=== PATIENT | male | born 1945 | race Caucasian/White ===

== ENCOUNTER → 2018-10-26 08:05 | Outpatient (CLI) | payer MEDICARE, BC, SELFPAY ==
[2018-10-26 10:32] LABS: Anion Gap 6 (5-15); BUN 21 mg/dL (7-18); BUN/Creat Ratio 18.4 RATIO (10-20); Calcium,Total 8.9 mg/dL (8.5-10.1); Chloride 106 mmol/L (98-107); Cholesterol 132 mg/dL (200); Creatinine, Serum 1.14 mg/dL (0.70-1.30); EST Glomerular Filtration Rate 67 mL/min (>60); Est Glom Filt Rate - Afr Amer 81 mL/min (>60); Glucose 92 mg/dL (74-106); High Density Lipoprotein 61 mg/dL; PSA,Total- Diagnostic 2.02 ng/mL (0.0-4.0); Potassium 3.8 mmol/L (3.5-5.1); Sodium Level 144 mmol/L (136-145); Triglycerides 72 mg/dL; Very Low Density Lipoprotein 14 mg/dL (5-40)
== END ==
PROVIDERS: Family Provider Family Medicine; PCP Family Medicine; Referring Provider Family Medicine; Visit Provider Family Medicine
DX: E78.5 Hyperlipidemia, unspecified (principal); N40.0 Benign prostatic hyperplasia without lower urinary tract symptoms
CPT/HCPCS: 36415; 80048; 80061; 84153

== ENCOUNTER → 2019-04-27 08:48 | Outpatient (CLI) | payer MEDICARE, BC, SELFPAY ==
[2019-04-27 10:29] LABS: ALB/GLOB Ratio 1.2 RATIO (0.9-2.4); AST(SGOT) 22 U/L (15-37); Alanine Aminotransfer ALT/SGPT 25 U/L (16-61); Albumin, Serum 3.8 g/dL (3.2-5.0); Alkaline Phosphatase 62 U/L (45-117); Anion Gap 5 (5-15); BUN 24 mg/dL (7-18); Calcium,Total 8.7 mg/dL (8.5-10.1); Chloride 107 mmol/L (98-107); Cholesterol 134 mg/dL (200); Creatinine, Serum 1.09 mg/dL (0.70-1.30); EST Glomerular Filtration Rate 70 mL/min (>60); Est Glom Filt Rate - Afr Amer 85 mL/min (>60); Globulin 3.3 g/dL (2.2-4.2); Glucose 108 mg/dL (74-106); High Density Lipoprotein 69 mg/dL; Potassium 4.2 mmol/L (3.5-5.1); Protein, Total 7.1 g/dL (6.4-8.2); Sodium Level 140 mmol/L (136-145); Triglycerides 57 mg/dL; Very Low Density Lipoprotein 11 mg/dL (5-40)
== END ==
PROVIDERS: Family Provider Family Medicine; PCP Family Medicine; Referring Provider Family Medicine; Visit Provider Family Medicine
DX: E78.5 Hyperlipidemia, unspecified (principal)
CPT/HCPCS: 36415; 80053; 80061

== ENCOUNTER → 2019-10-26 09:38 | Outpatient (CLI) | payer MEDICARE, BC, SELFPAY ==
[2019-10-26 13:58] LABS: ALB/GLOB Ratio 1.1 RATIO (0.9-2.4); AST(SGOT) 29 U/L (15-37); Alanine Aminotransfer ALT/SGPT 25 U/L (16-61); Albumin, Serum 3.8 g/dL (3.2-5.0); Alkaline Phosphatase 70 U/L (45-117); Anion Gap 7 (5-15); BUN 19 mg/dL (7-18); BUN/Creat Ratio 17.1 RATIO (10-20); Chloride 107 mmol/L (98-107); Cholesterol 125 mg/dL (200); Creatinine, Serum 1.11 mg/dL (0.70-1.30); EST Glomerular Filtration Rate 69 mL/min (>60); Est Glom Filt Rate - Afr Amer 83 mL/min (>60); Globulin 3.5 g/dL (2.2-4.2); Glucose 108 mg/dL (74-106); High Density Lipoprotein 74 mg/dL; Potassium 4.1 mmol/L (3.5-5.1); Protein, Total 7.3 g/dL (6.4-8.2); Sodium Level 140 mmol/L (136-145); Triglycerides 46 mg/dL; Very Low Density Lipoprotein 9 mg/dL (5-40)
== END ==
PROVIDERS: PCP Family Medicine; Visit Provider Family Medicine
DX: E78.5 Hyperlipidemia, unspecified (principal); F32.9 Major depressive disorder, single episode, unspecified; F41.9 Anxiety disorder, unspecified
CPT/HCPCS: 36415; 80053; 80061

== ENCOUNTER → 2020-04-29 10:12 | Outpatient (CLI) | payer MEDICARE, BC, SELFPAY ==
[2020-04-29 12:57] LABS: Anion Gap 3 (5-15); BUN 20 mg/dL (7-18); BUN/Creat Ratio 18.7 RATIO (10-20); Calcium,Total 8.8 mg/dL (8.5-10.1); Chloride 105 mmol/L (98-107); Cholesterol 121 mg/dL (200); Creatinine, Serum 1.07 mg/dL (0.70-1.30); EST Glomerular Filtration Rate 71 mL/min (>60); Est Glom Filt Rate - Afr Amer 87 mL/min (>60); Glucose 101 mg/dL (74-106); High Density Lipoprotein 71 mg/dL; Sodium Level 139 mmol/L (136-145); Triglycerides 58 mg/dL; Very Low Density Lipoprotein 12 mg/dL (5-40)
== END ==
PROVIDERS: PCP Family Medicine; Visit Provider Family Medicine
DX: E78.5 Hyperlipidemia, unspecified (principal); E87.6 Hypokalemia; E55.9 Vitamin D deficiency, unspecified
CPT/HCPCS: 36415; 80048; 80061; 82306

== ENCOUNTER → 2020-09-04 09:54 | Outpatient (CLI) | payer MEDICARE, BC, SELFPAY ==
[2020-09-04 12:22] LABS: Hematocrit 47.1 % (40-54); Hemoglobin 16.5 g/dL (13.0-16.5); Mean Corpuscular Hgb 34.7 pg (27.0-32.0); Mean Corpuscular Volume 98.9 fL (80-94); Mean Platelet Vol. 10.2 fl (6.2-12.0); Platelet Count 142 K/mm3 (150-450); RBC Distribution Width CV 12.6 % (11.6-14.6); RBC Distribution Width SD 45.8 fl (35.1-43.9); Red Blood Count 4.76 M/mm3 (4.6-6.2); White Blood Count 6.2 K/mm3 (4.4-11.0)
[2020-09-04 12:45] LABS: AST(SGOT) 23 U/L (15-37); Alanine Aminotransfer ALT/SGPT 23 U/L (16-61); Albumin, Serum 3.7 g/dL (3.2-5.0); Alkaline Phosphatase 76 U/L (45-117); Anion Gap 5 (5-15); BUN 18 mg/dL (7-18); BUN/Creat Ratio 15.8 RATIO (10-20); CRP < 2.90 mg/L (0.0-3.0); Calcium,Total 9.3 mg/dL (8.5-10.1); Chloride 105 mmol/L (98-107); Creatinine, Serum 1.14 mg/dL (0.70-1.30); EST Glomerular Filtration Rate 66 mL/min (>60); Est Glom Filt Rate - Afr Amer 80 mL/min (>60); Globulin 3.6 g/dL (2.2-4.2); Glucose 94 mg/dL (74-106); Potassium 4.5 mmol/L (3.5-5.1); Protein, Total 7.3 g/dL (6.4-8.2); Sodium Level 139 mmol/L (136-145)
== END ==
PROVIDERS: PCP Family Medicine; Referring Provider Internal Medicine Gastroenterology; Visit Provider Internal Medicine Gastroenterology
DX: K51.90 Ulcerative colitis, unspecified, without complications (principal)
CPT/HCPCS: 36415; 80053; 85027; 86140

== ENCOUNTER → 2021-02-21 10:29 | Outpatient (CLI) | payer MEDICARE, BC, SELFPAY ==
[2021-02-21 12:43] LABS: PSA,Total - Annual Screen 2.55 ng/mL (0.00-4.00)
== END ==
PROVIDERS: PCP Family Medicine; Referring Provider Family Medicine; Visit Provider Family Medicine
DX: N40.0 Benign prostatic hyperplasia without lower urinary tract symptoms (principal)
CPT/HCPCS: 36415; 84153; G0103

== ENCOUNTER → 2021-05-13 08:49 | Outpatient (CLI) | payer MEDICARE, BC, SELFPAY ==
[2021-05-13 10:25] LABS: ALB/GLOB Ratio 0.9 RATIO (0.9-2.4); AST(SGOT) 25 U/L (15-37); Alanine Aminotransfer ALT/SGPT 22 U/L (16-61); Albumin, Serum 3.4 g/dL (3.2-5.0); Alkaline Phosphatase 70 U/L (45-117); Anion Gap 5 (5-15); BUN 20 mg/dL (7-18); BUN/Creat Ratio 18.3 RATIO (10-20); Calcium,Total 9.1 mg/dL (8.5-10.1); Chloride 104 mmol/L (98-107); Cholesterol 135 mg/dL (200); Creatinine, Serum 1.09 mg/dL (0.70-1.30); EST Glomerular Filtration Rate 70 mL/min (>60); Est Glom Filt Rate - Afr Amer 84 mL/min (>60); Globulin 3.9 g/dL (2.2-4.2); Glucose 98 mg/dL (74-106); High Density Lipoprotein 70 mg/dL; Potassium 3.9 mmol/L (3.5-5.1); Protein, Total 7.3 g/dL (6.4-8.2); Sodium Level 139 mmol/L (136-145); Triglycerides 66 mg/dL; Very Low Density Lipoprotein 13 mg/dL (5-40)
== END ==
PROVIDERS: PCP Family Medicine; Visit Provider Family Medicine
DX: E78.5 Hyperlipidemia, unspecified (principal)
CPT/HCPCS: 36415; 80053; 80061

== ENCOUNTER → 2021-10-30 | Outpatient (CLI) | payer MEDICARE, SELFPAY ==
[2021-10-30 12:43] LABS: ALB/GLOB Ratio 1.1 RATIO (0.9-2.4); AST(SGOT) 20 U/L (15-37); Alanine Aminotransfer ALT/SGPT 22 U/L (16-61); Albumin, Serum 3.7 g/dL (3.2-5.0); Alkaline Phosphatase 53 U/L (45-117); Anion Gap 4 (5-15); BUN 19 mg/dL (7-18); BUN/Creat Ratio 17.8 RATIO (10-20); Calcium,Total 8.7 mg/dL (8.5-10.1); Chloride 106 mmol/L (98-107); Cholesterol 132 mg/dL (200); Creatinine, Serum 1.07 mg/dL (0.70-1.30); EST Glomerular Filtration Rate 71 mL/min (>60); Est Glom Filt Rate - Afr Amer 86 mL/min (>60); Globulin 3.4 g/dL (2.2-4.2); Glucose 103 mg/dL (74-106); High Density Lipoprotein 73 mg/dL; Potassium 4.1 mmol/L (3.5-5.1); Protein, Total 7.1 g/dL (6.4-8.2); Sodium Level 139 mmol/L (136-145); Triglycerides 46 mg/dL; Very Low Density Lipoprotein 9 mg/dL (5-40)
== END | disposition home or self-care (01) ==
LOC: MFPLAB 10:02
PROVIDERS: PCP Family Medicine; Referring Provider Family Medicine; Visit Provider Family Medicine
DX: E78.5 Hyperlipidemia, unspecified (principal)
CPT/HCPCS: 36415; 80053; 80061

== ENCOUNTER 2022-02-12 11:59 | Emergency (ER) | payer MEDICARE, SELFPAY ==
[2022-02-12 12:00] VITALS: BP 102/69; PULSE 58; RESP 14; TEMP 36.2; O2SAT 97; BMI 20.9
--- NOTE | 2022-02-12 12:17 | EDS_ITS ---
HPI History of Present Illness Chief Complaint: Complaint Detail of Chief Complaint: Dysuria and urinary retention that started last night Informant: patient Narrative Narrative: Patient presents the emergency department complaint of not being able to void since last evening. Patient is able to get small amounts out but it is painful. He complains of dry heaves. He complains of some lower abdominal discomfort and pressure. He complains of some mild discomfort in his low back. He denies any fevers. He is not had symptoms like this before. He denies recent travel or surgery. Prior similar symptoms: No PFSH PFSH Medical History (Updated 02/12/22 @ 14:[address] Rolo Rahman, DO) Colitis High cholesterol Lymphoma TIA (transient ischemic attack) Home Medications cephalexin 500 mg capsule 500 mg PO Q6 #40 CAPSULES 02/12/22 [Rx Last Taken Unknown] ondansetron 4 mg disintegrating tablet 4 mg PO Q8H PRN PRN Nausea #10 tabs 02/12/22 [Rx Last Taken Unknown] phenazopyridine 200 mg tablet (Pyridium) 200 mg PO TID #10 tabs 02/12/22 [Rx Last Taken Unknown] Allergy/AdvReac Type Severity Reaction Status Date / Time No Known Allergies Allergy Verified 02/12/22 12:00 Social History Smoking Status: Never smoker ROS ROS ED Review of Systems ROS Unobtainable: other Constitutional Constitutional ED: Reports lethargy; Denies chills, fever(s), sweats or weight loss Eyes Eyes: Denies blurry vision, change in vision or diplopia ENT ENT ED: Denies rhinorrhea or sore throat Cardiovascular Cardiovascular: Denies chest pain, orthopnea or racing heartbeat Respiratory/Chest Respiratory/Chest: Denies cough, dyspnea, dyspnea on exertion, orthopnea or sputum Gastrointestinal Gastrointestinal: Reports abdominal pain; Denies diarrhea, nausea or vomiting Genitourinary Genitourinary ED: Reports dysuria and other Details: Urinary retention ; Denies hematuria or urinary frequency Musculoskeletal Musculoskeletal: Denies arthralgias, back pain, myalgias or neck pain Integumentary Denies abscess, Abrasions or rash Neurologic Neurologic: Denies headache(s) or weakness Psychiatric Psychiatric: Denies anxiety, depression or suicidal thoughts Endocrine Endocrinology: Denies polydipsia, polyphagia or polyuria Hematologic/Lymphatic Hematologic/Lymphatic: Denies easy bleeding, easy bruising or lymphadenopathy Allergic/Immunologic Allergic/Immunologic ED: Denies mouth swelling, tongue swelling or urticaria EXAM Physical Exam Const Vital Signs: 02/12/22 12:00 02/12/22 12:57 Temperature 97.2 F L 99.6 F H Temperature Source Temporal Oral Pulse Rate 58 L Respiratory Rate 14 Blood Pressure 102/69 Blood Pressure Mean 80 Pulse Ox 97 Oxygen Delivery Method Room Air Positive well nourished and well developed General Appearance ED: well developed and NAD HEENT Reports TM's clear and moist mucous membranes normocephalic and atraumatic; Negative for trauma or tenderness Tympanic Membrane ED: Yes TM's clear Eyes PERRL and EOMs intact bilaterally General Eye ED: Negative for pale conjunctiva or scleral icterus Neck no lymphadenopathy, supple and no JVD General: Negative for tenderness Chest Wall inspection of chest normal and palpation of chest normal Chest: Negative for tenderness Resp normal respiratory effort and clear to auscultation bilaterally Effort and Inspection: Negative for respiratory distress or pain with movement Auscultation: Negative for rhonchi, wheezes or diminished lung sounds Cardio regular rate, regular rhythm, S1 normal heart sound, S2 normal heart sound and no murmurs Peripheral Pulses: pulses 2+ throughout GI normal to inspection, nondistended, normoactive bowel sounds, soft to palpation, non-distended and no masses GI Narrative: Mild tenderness over suprapubic region. There is no rebound, rigidity, or peritoneal signs. Back/Spine no CVA tenderness and no thoracic nor lumbar tenderness Extremity normal to inspection General Extremety ED: Negative for edema General Extremity: Negative for edema Neuro oriented x3, CN's II-XII intact bilaterally, no sensory deficits noted and gait normal Sensorium / Orientation: awake, alert, oriented to person, oriented to place and oriented to time Motor Exam: strength 5/5 throughout and strength abnormal Psych mental status grossly normal Skin no rashes or lesions noted and no wounds MDM MDM Lab Data Attestation: I reviewed the patient's lab results. Lab results narrative: The line established and patient was given morphine and Toradol and Zofran IV. I did order Rocephin 1 g IV and Pyridium p.o. Patient was noted to have UTI. His white count was 15.5. Chemistries and kidney function unremarkable. I did send off a urine culture. Patient had a CT of the flank that did not show any evidence of kidney stones. He did have an enlarged prostate for which he is following up with urology. Patient has a UTI and will treat as an outpatient with Keflex as well as Zofran and Pyridium. Patient advised to return if worsening pain, fever, vomiting, or condition should worsen anyway. Labs: Laboratory Results - last 24 hr 02/12/22 02/12/22 02/12/22 12:30 12:50 12:50 WBC 15.5 H RBC 5.11 Hgb 17.6 H Hct 50.4 MCV 98.6 H MCH 34.4 H MCHC 34.9 RDW Std Deviation 44.6 H RDW Coeff of Julito 12.3 Plt Count 99 L MPV 10.2 Immature Gran % (Auto) 0.600 Neut % (Auto) 84.1 H Lymph % (Auto) 6.4 L [place] % (Auto) 8.8 Eos % (Auto) 0.0 Baso % (Auto) 0.1 Absolute Neuts (auto) 13.0 H Absolute Lymphs (auto) 0.99 Nucleated RBC % 0 Sodium 138 Potassium 4.4 Chloride 102 Carbon Dioxide 29.0 Anion Gap 7 BUN 17 Creatinine 1.22 Estim Creat Clear Calc 50.43 Est GFR (MDRD) Af Amer 74 Est GFR (MDRD) Non-Af 61 BUN/Creatinine Ratio 13.9 Glucose 138 H Calcium 9.3 Urine Color Yellow Urine Clarity Sl. Cloudy Urine pH 6.0 Ur Specific [place] 1.015 Urine Protein 30 H Urine Glucose (UA) Normal Urine Ketones 15 H Urine Occult Blood 250 H Urine Nitrite Negative Urine Bilirubin Negative Urine Urobilinogen Normal Ur Leukocyte Esterase 500 H Urine RBC 25-50 SEEN Urine WBC 25-50 SEEN Ur Squamous Epith Cells 0-5 SEEN Urine Bacteria 3+ Urine Mucus 0 SEEN Radiography Diagnostic Testing: Clinical Impression(s) from Imaging Studies Abdomen/Pelvis CT 02/12/22 12:34 IMPRESSION: Mild increased markings at the lung bases suggest atelectasis and/or scarring. 1.5 cm x 1.1 cm cyst in the right lobe of the liver. Sludge or small gallstones within the gallbladder lumen. Right renal cysts. Prostatic enlargement with indentation of the bladder base. Electronically Signed: Christian Keane MD at 13:22 EDT , Discharge Plan Triage Chief Complaint: Complaint ED Provider: Rolo Rahman Dx/Rx/DC Orders Clinical Impression: Acute UTI Instructions: ED Bladder Infection, Male (Adult) Prescriptions: New phenazopyridine [Pyridium] 200 mg tablet 200 mg PO TID Qty: 10 0RF cephalexin [cephalexin] 500 mg capsule 500 mg PO Q6 Qty: 40 0RF ondansetron [ondansetron] 4 mg tablet,disintegrating 4 mg PO Q8H PRN PRN (Reason: Nausea) Qty: 10 0RF Primary Care Provider: Elijah Lowery Referrals: Elijah Lowery MD [Primary Care Provider] - 3-5 Days Disposition Disposition: Home, Self Care
--- NOTE | 2022-02-12 12:34 | CT_ITS ---
STUDY: CT ABDOMEN AND PELVIS WITHOUT CONTRAST REASON FOR EXAM: Male, 76 years old. Left flank pain. Bladder infection. Unable to urinate. RADIATION DOSAGE (If Supplied By Facility): CTDIvol = ( 6.11 ) mGy, DLP = ( 311.55 ) mGycm TECHNIQUE: Transaxial images were obtained from the dome of the diaphragm to the symphysis pubis without oral contrast, and without intravenous contrast. Sagittal and coronal images were reconstructed. Individualized dose optimization techniques were used for this CT. COMPARISON: None. FINDINGS: Mild degree of increased linear markings at the lung bases suggestive of atelectasis and/or scarring. Coronary artery calcification. There is a 1.5 cm x 1.1 cm cyst in the right lobe of the liver. Calcified granuloma in the upper aspect of the right lobe of the liver laterally. There is evidence of increased density in the gallbladder lumen suggestive of either small gallstones versus sludge. There are benign calcified granulomata of the spleen. Normal pancreas. Normal bilateral adrenal glands. There is a 1.3 cm x 1.6 cm cyst in the posterior lower pole of the right kidney. I also suspect a 1.5 cm cyst in the upper medial pole of the right kidney. Normal left kidney. There is a small hiatal hernia. Normal small intestine. Normal colon. The appendix is visualized and appears normal. There is scattered atherosclerotic calcification of the abdominal aorta, without a demonstrated aneurysm. Normal inferior vena cava. Normal retroperitoneum. PLAZA catheter is seen within the urinary bladder. Air is seen within the bladder secondary to the PLAZA catheter. There is enlargement of the prostate gland. The prostate measures 5.4 cm by 7.5 cm. Central calcifications are seen. This causes indentation at the bladder base. There is a small umbilical hernia containing fat. There are diffuse degenerative changes of the visualized lumbar spine. CT/Abdomen/Pelvis without Cont IMPRESSION: Mild increased markings at the lung bases suggest atelectasis and/or scarring. 1.5 cm x 1.1 cm cyst in the right lobe of the liver. Sludge or small gallstones within the gallbladder lumen. Right renal cysts. Prostatic enlargement with indentation of the bladder base. Electronically Signed: Christian Keane MD at 13:22 EDT ,
[2022-02-12 12:41] LABS: Mucous, Urine 0 SEEN /hpf (<or=2+)
[2022-02-12 12:46] LABS: Color, Urine Yellow (Yellow); Glucose, Dipstick Normal (Normal); Ketone-Dipstick 15 mg/dl (Negative); Leukocyte Esterase-Dipstick 500 /ul (Negative); Nitrite-Dipstick Negative (Negative); Occult Blood-Urine 250 /ul (Negative); Protein-Dipstick 30 mg/dl (Negative); Specific Gravity, Urine 1.015 (1.002-1.030); Urine Bilirubin Dipstick Negative (Negative); Urine Clarity Sl. Cloudy (Clear); Urine Urobilinogen Normal (Normal)
[2022-02-12] MEDS: Ondansetron 4 MG/2 ML Vial IV (12:52)
[2022-02-12] MEDS: Ketorolac 15 MG/ML Vial IV (12:52)
[2022-02-12] MEDS: Morphine 4 MG/ML Syringe IV (12:53)
[2022-02-12 12:55] LABS: Bacteria 3+ /hpf (None Seen); Red Blood Cells-Urine 25-50 SEEN /hpf (0-5); Squamous Epithelial Cells - UA 0-5 SEEN /hpf (0-5); White Blood Cells 25-50 SEEN /hpf (0-5)
[2022-02-12 12:57] VITALS: TEMP 37.6
[2022-02-12 13:07] LABS: Absolute Lymphocyte Count 0.99 X10^3/uL (0.83-4.51); Basophil# 0.02 X10^3/uL; Basophil% 0.1 % (0-1); Hematocrit 50.4 % (40-54); Hemoglobin 17.6 g/dL (13.0-16.5); Lymphocyte # 0.99 X10^3/ul (0.83-4.51); Lymphocyte % 6.4 % (19-41); Mean Corp Hgb Conc 34.9 g/dL (32-36); Mean Corpuscular Hgb 34.4 pg (27.0-32.0); Mean Corpuscular Volume 98.6 fL (80-94); Mean Platelet Vol. 10.2 fl (6.2-12.0); Monocyte# 1.36 X10^3/uL; Monocyte% 8.8 % (0-10); NRBC Flagged by Analyzer 0 % (0-5); Neutrophil # 13.01 X10^3/uL (2.7-7.7); Neutrophil % 84.1 % (47-70); POSITIVE COUNT YES; Platelet Count 99 K/mm3 (150-450); RBC Distribution Width CV 12.3 % (11.6-14.6); RBC Distribution Width SD 44.6 fl (35.1-43.9); Red Blood Count 5.11 M/mm3 (4.6-6.2); White Blood Count 15.5 K/mm3 (4.4-11.0)
[2022-02-12 13:14] LABS: Anion Gap 7 (5-15); BUN 17 mg/dL (7-18); BUN/Creat Ratio 13.9 RATIO (10-20); Calcium,Total 9.3 mg/dL (8.5-10.1); Chloride 102 mmol/L (98-107); Creatinine, Serum 1.22 mg/dL (0.70-1.30); EST Glomerular Filtration Rate 61 mL/min (>60); Est Glom Filt Rate - Afr Amer 74 mL/min (>60); Estimated Creatinine Clearance 50.43 ml/min; Glucose 138 mg/dL (74-106); Potassium 4.4 mmol/L (3.5-5.1); Sodium Level 138 mmol/L (136-145)
[2022-02-12] MEDS: Ceftriaxone 1 GM/50 ML BAG IV (14:29)
[2022-02-12] MEDS: Phenazopyridine 95 MG Tablet 190 MG PO (14:32)
[2022-02-12 14:49] VITALS: TEMP 36.9
[2022-02-12 15:56] VITALS: BP 110/68; PULSE 55; RESP 18; TEMP 36.9; O2SAT 99
== END 2022-02-12 16:00 | disposition home or self-care (01) ==
PROVIDERS: Emergency Provider Emergency Medicine; PCP Family Medicine; Visit Provider Emergency Medicine
DX: N39.0 Urinary tract infection, site not specified (principal); E78.00 Pure hypercholesterolemia, unspecified; Z86.73 Personal history of transient ischemic attack (TIA), and cerebral infarction without residual deficits
CPT/HCPCS: 51702; 74176; 80048; 81001; 85025; 96365; 96375; 99285; J2405

== ENCOUNTER 2022-02-15 13:27 | Emergency (ER) | payer MEDICARE, SELFPAY ==
[2022-02-15 13:28] VITALS: BP 159/84; PULSE 66; RESP 14; TEMP 36.3; O2SAT 97; BMI 20.7
--- NOTE | 2022-02-15 13:48 | EX.ED.GUMALE ---
HPI History of Present Illness Chief Complaint: Complaint Informant: patient and spouse/S.O. Narrative Narrative: 76-year-old male presenting to the emergency room with dysuria and urinary frequency. Patient states that on evening he was seen here in the emergency room and was diagnosed with a UTI. He states that he has been taking the antibiotic and the Pyridium but his symptoms continued. He states he is urinating every couple minutes but only a couple drops. He denies current fever but notes he had a subjective one on . He denies any rectal pain or perineal pain. He states that he used to see a urologist in [place] but since the pandemic he has not gone back and would like to switch to [facility]. He notes a history of BPH. [facility] Medical History Colitis High cholesterol Lymphoma TIA (transient ischemic attack) Home Medications ondansetron 4 mg disintegrating tablet 4 mg PO Q8H PRN PRN Nausea #10 tabs 02/12/22 [Rx Last Taken Unknown] phenazopyridine 200 mg tablet (Pyridium) 200 mg PO TID #10 tabs 02/12/22 [Rx Last Taken Unknown] ciprofloxacin HCl 500 mg tablet (Cipro) 500 mg PO Q12H #20 tabs 02/15/22 [Rx Last Taken Unknown] Allergy/AdvReac Type Severity Reaction Status Date / Time No Known Allergies Allergy Verified 02/15/22 13:28 Social History (Updated 02/15/22 @ 13:[address] Grant Sifuentes DO) current occupational status: retired current gender identity: male Smoking Status: Never smoker ROS ROS ED Constitutional Constitutional ED: Denies chills or weight loss Eyes Eyes: Denies change in vision or diplopia ENT ENT ED: Denies ear pain, rhinorrhea or sore throat Cardiovascular Cardiovascular: Denies chest pain, orthopnea, palpitations or racing heartbeat Respiratory/Chest Respiratory/Chest: Denies cough, dyspnea or orthopnea Gastrointestinal Gastrointestinal: Reports abdominal pain; Denies diarrhea, nausea or vomiting Genitourinary Genitourinary ED: Reports dysuria and urinary frequency; Denies hematuria Musculoskeletal Musculoskeletal: Denies arthralgias or myalgias Integumentary Denies abscess or rash Neurologic Neurologic: Denies headache(s) or weakness Psychiatric Psychiatric: Denies anxiety, depression, suicidal ideation or suicidal thoughts Endocrine Endocrinology: Denies polydipsia, polyphagia or polyuria Allergic/Immunologic Allergic/Immunologic ED: Denies mouth swelling, tongue swelling or urticaria EXAM Physical Exam Const Vital Signs: 02/15/22 13:28 Temperature 97.3 F L Temperature Source Temporal Pulse Rate 66 Respiratory Rate 14 Blood Pressure 159/84 H Blood Pressure Mean 109 Pulse Ox 97 Oxygen Delivery Method Room Air Positive well nourished and well developed General Appearance ED: well developed HEENT Reports normocephalic, head/scalp atraumatic and moist mucous membranes Eyes PERRL and EOMs intact bilaterally Neck no lymphadenopathy, supple and no JVD Resp normal respiratory effort and clear to auscultation bilaterally Cardio regular rate, regular rhythm and no murmurs GI normal to inspection, nondistended, normoactive bowel sounds and non-tender Palpation: soft Narrative: There is a palpable distended bladder 2 fingerbreadths below the umbilicus. Back/Spine no CVA tenderness and normal ROM Extremity normal to inspection General Extremety ED: Negative for edema General Extremity: Negative for edema Neuro oriented x3 and CN's II-XII intact bilaterally Sensorium / Orientation: alert Motor Exam: strength 5/5 throughout Psych mental status grossly normal Mood & Affect: Negative for depressed or tearful Skin no rashes or lesions noted and no wounds MDM MDM MDM Narrative Medical decision making narrative: Bedside ultrasound confirms the presence of urinary retention. Judd catheter is placed with 750 cc of urine return. Moderate resistance felt at level prostate. Urinalysis today 5-10 white cells 5-10 red cells 1+ bacteria so improved however I am concerned about a component of prostatitis with him. Therefore Emperatriz change him to Cipro and request a urine culture. We will refer him to local urology. Lab Data Labs: Laboratory Results - last 24 hr 02/15/22 14:11 Urine Color Red Urine Clarity Clear Urine pH 5.0 Ur Specific [place] 1.020 Urine Protein 30 H Urine Glucose (UA) Normal Urine Ketones Negative Urine Occult Blood 50 H Urine Nitrite Positive H Urine Bilirubin 6 H Urine Urobilinogen 8 H Ur Leukocyte Esterase 25 H Urine RBC 5-10 SEEN Urine WBC 5-10 SEEN Ur Squamous Epith Cells 0 SEEN Urine Bacteria 1+ Urine Mucus 0 SEEN Discharge Plan Triage Chief Complaint: Complaint ED Provider: Grant Sifuentes Dx/Rx/DC Orders Clinical Impression: Acute UTI, Acute urinary retention Instructions: ED Urinary Retention, Male Prescriptions: New ciprofloxacin HCl [Cipro] 500 mg tablet 500 mg PO Q12H Qty: 20 0RF Discontinued cephalexin [cephalexin] 500 mg capsule 500 mg PO Q6 Qty: 40 0RF No Action phenazopyridine [Pyridium] 200 mg tablet 200 mg PO TID Qty: 10 0RF ondansetron [ondansetron] 4 mg tablet,disintegrating 4 mg PO Q8H PRN PRN (Reason: Nausea) Qty: 10 0RF Primary Care Provider: Elijah Lowery Referrals: Hudson Macedo MD [Med Staff - Active Staff] - As soon as possible Elijah Lowery MD [Primary Care Provider] -
[2022-02-15 14:17] LABS: Mucous, Urine 0 SEEN /hpf (<or=2+); Squamous Epithelial Cells - UA 0 SEEN /hpf (0-5)
--- NOTE | 2022-02-15 14:21 | ED.RN ---
WHEN URINARY CATHETER WAS PLACED, PT HAD 750 ML OF ORANGE URINE OUT. PT STATES RELIEF AT THIS TIME.
[2022-02-15 14:24] LABS: Color, Urine Red (Yellow); Glucose, Dipstick Normal (Normal); Ketone-Dipstick Negative (Negative); Leukocyte Esterase-Dipstick 25 /ul (Negative); Nitrite-Dipstick Positive (Negative); Occult Blood-Urine 50 /ul (Negative); Protein-Dipstick 30 mg/dl (Negative); Urine Clarity Clear (Clear); Urine Urobilinogen 8 mg/dl (Normal)
[2022-02-15 14:25] LABS: Urine Bilirubin Dipstick 6 mg/dL (Negative)
[2022-02-15 14:36] LABS: Bacteria 1+ /hpf (None Seen); Red Blood Cells-Urine 5-10 SEEN /hpf (0-5); White Blood Cells 5-10 SEEN /hpf (0-5)
[2022-02-15 14:49] VITALS: RESP 18
== END 2022-02-15 15:17 | disposition home or self-care (01) ==
LOC: ED 13:38
PROVIDERS: Emergency Provider Emergency Medicine; PCP Family Medicine; Visit Provider Emergency Medicine
DX: N39.0 Urinary tract infection, site not specified (principal); N40.1 Benign prostatic hyperplasia with lower urinary tract symptoms; R33.8 Other retention of urine; R30.0 Dysuria; E78.00 Pure hypercholesterolemia, unspecified; R35.0 Frequency of micturition; Z79.899 Other long term (current) drug therapy; Z86.73 Personal history of transient ischemic attack (TIA), and cerebral infarction without residual deficits
CPT/HCPCS: 81001; 87086; 99282

== ENCOUNTER 2022-03-04 14:04 | Observation (INO) | payer MEDICARE, SELFPAY ==
--- NOTE | 2022-03-02 12:11 | SUR.PREOP ---
pt's POA called in to discuss if she would be allowed to stay the night with the patient- he is a/o times three but does have glaucoma and gets easily overwhelmed and he would like her to stay- talked with zoya charge manager on [facility]- she said that the pt's friend could stay until 8 or 9pm at night and than it would be up to the charge nurse as to whether patient's friend could stay. the patient's friend can come back in the next morning around 8am. this info given to the poa/friend: jackie zhou. she voices understanding and will relay to the patient
--- NOTE | 2022-03-03 08:42 | EKG12_ITS ---
Test Reason : PREOP Blood Pressure : / mmHG Vent. Rate : 056 BPM Atrial Rate : 056 BPM P-R Int : 122 ms QRS Dur : 092 ms QT Int : 402 ms P-R-T Axes : 052 061 080 degrees QTc Int : 387 ms Sinus bradycardia Otherwise normal ECG Confirmed by ATIYA SAMANO, NICHO ([id number]), rewrite editor DAVID KEYES ([id number]) on 03/04/2022 11:09:42 AM Referred By: Hudson Macedo Confirmed By:NICHO RAJPUT MD
[2022-03-03 09:41] LABS: Hematocrit 48.5 % (40-54); Hemoglobin 16.7 g/dL (13.0-16.5); Mean Corp Hgb Conc 34.4 g/dL (32-36); Mean Corpuscular Hgb 34.6 pg (27.0-32.0); Mean Corpuscular Volume 100.6 fL (80-94); Mean Platelet Vol. 9.7 fl (6.2-12.0); Platelet Count 157 K/mm3 (150-450); RBC Distribution Width CV 12.3 % (11.6-14.6); RBC Distribution Width SD 46.1 fl (35.1-43.9); Red Blood Count 4.82 M/mm3 (4.6-6.2); White Blood Count 6.3 K/mm3 (4.4-11.0)
[2022-03-03 09:51] LABS: Partial Thromboplast Time 29.6 Seconds (24.1-36.2)
[2022-03-03 10:02] LABS: AST(SGOT) 20 U/L (15-37); Alanine Aminotransfer ALT/SGPT 23 U/L (16-61); Albumin, Serum 3.4 g/dL (3.2-5.0); Alkaline Phosphatase 71 U/L (45-117); Bilirubin, Direct 0.28 mg/dL (0.00-0.30); Globulin 4.2 g/dL (2.2-4.2); Protein, Total 7.6 g/dL (6.4-8.2)
[2022-03-04] VITALS (13 sets, daily range): BP systolic 114–149; BP diastolic 59–94; PULSE 47–65; RESP 16–19; TEMP 36.1–37.1; O2SAT 95–100; BMI 20.4
[2022-03-04] MEDS: Lactated Ringers 1,000 ML 15 ML IV ×2 (09:31→12:55)
[2022-03-04] MEDS: Cefazolin 2 GM in 0.9% Normal Saline 100 ML IV (11:04)
--- NOTE | 2022-03-04 11:15 | PROS_PTH ---
PATIENT: SHARONDA MELISSA LOC: MS[facility] U#:[id number] AGE/SX: 76/M [place] [facility] [place]: Dr. Hudson Macedo MD : [id number] BED: 1 DIS: 03/05/2022 SPEC #: [id number] RECD: 03/04/22 12:50 STATUS: TUCKER ARAUJO #: [id number] ARCADIO: 03/04/22 11:[address]: Hudson Macedo DEPT: SURGICAL PATHOLOGY RECD BY: Merritt Oden ENTERED: 03/04/22 13:29 SP TYPE: TURP OTHR DR: MD Dr. Elijah Potts MD Tissues: Prostate, NOS Procedures: Surgery Specimen Level IV HEADER OPERATION: Cysto, TUR prostate, Olympus PRE-OP DIAGNOSIS: BPH, retention of urine TISSUE SUBMITTED: Prostate tissue MICROSCOPIC DIAGNOSIS Prostate tissue, transurethral resection: Benign prostatic hyperplasia, glandular and stromal type. Focal chronic inflammation. SJ:bandar 03/05/2022 MICROSCOPIC DESCRIPTION Slides are reviewed. GROSS DESCRIPTION Received is one container labeled with the patient's name and designated prostate tissue. The specimen consists of multiple irregular fragments of pink-simpson, rubbery, soft tissue that in aggregate weigh 9.1 gm and measure in aggregate 6 x 5 x 0.8 cm. The entire specimen is submitted in eight cassettes. / AM:bandar 03/04/2022 TC:5 CPT: 46498
[2022-03-04] MEDS: Lubricating Jelly 60 GM Tube 30 GM (11:20)
--- NOTE | 2022-03-04 12:00 | PCM.HP.STD ---
HPI - General General Date of Service: 03/04/22 HPI Cindy MELISSA, is a 76 M who presents for TURP he has retention of urine has failed voiding trials. ON LICENSE OF [facility] Medical History (Updated 03/02/22 @ 11:40 by Pily Reyes) Alcohol use Chews loose leaf tobacco Colitis Easy bruising Former smoker Glaucoma High cholesterol Indwelling urethral catheter present Lymphoma PONV (postoperative nausea and vomiting) Seasonal allergies TIA (transient ischemic attack) Wears dentures Home Medications ondansetron 4 mg disintegrating tablet 4 mg PO Q8H PRN PRN Nausea #10 tabs 02/12/22 [Rx Last Taken 03/03/22] aspirin 81 mg tablet 81 mg PO DAILY heart health 03/02/22 [History Last Taken 02/12/22] atorvastatin 20 mg tablet 20 mg PO QHS 03/02/22 [History Last Taken 03/03/22] cholecalciferol (vitamin D3) 50 mcg (2,000 unit) capsule (Vitamin D3) 50 mcg PO DAILY supplement 03/02/22 [History Last Taken 03/03/22] folic acid 1 mg tablet 1 mg PO DAILY supplement 03/02/22 [History Last Taken 03/03/22] infliximab 100 mg intravenous solution (Remicade) 100 mg IV .Q3WEEK UC 03/02/22 [History Last Taken 01/23/22] latanoprost 0.005 % eye drops 1 drp EACH EYE QHS eyes 03/02/22 [History Last Taken 03/03/22] potassium chloride 10 mEq capsule,extended release 10 meq PO DAILY supplement 03/02/22 [History Last Taken 03/03/22] sildenafil 50 mg tablet 50 mg PO DAILY PRN PRN Sexual Activity 03/02/22 [History Last Taken 03/03/22] vitamin B complex 1 tab PO DAILY supplement 03/02/22 [History Last Taken 03/03/22] Allergy/AdvReac Type Severity Reaction Status Date / Time No Known Allergies Allergy Verified 03/02/22 11:09 Surgical History (Updated 03/02/22 @ 11:40 by Pily Reyes) History of colonoscopy History of heart surgery History of testicular surgery History of tonsillectomy History of umbilical hernia repair Social History (Updated 02/15/22 @ 13:[address] Grant Sifuentes, DO) current occupational status: retired Smoking Status: Former smoker Vital Signs Vital Signs Vital Signs: 03/04/22 09:34 03/04/22 09:34 Temperature 98.8 F Temperature Source Temporal Pulse Rate 50 L Respiratory Rate 18 Respiratory Pattern Normal Blood Pressure 149/75 H Blood Pressure Mean 99 Blood Pressure Source Monitor Blood Pressure Position Semi-Fowlers Blood Pressure Location Left Arm Pulse Ox 99 Oxygen Delivery Method Room Air Weight Weight: 68.22 kg Body Mass Index (BMI) 20.4 Results Lab / Micro Data Result Diagrams: 03/03/22 08:40
--- NOTE | 2022-03-04 12:01 | PCM.DC ---
Discharge Instructions Diet Discharge Diet: No restrictions, Light diet - advance as tolerated and Soft diet Activity Discharge Activity: Return to Normal Activity and May Not Drive Follow Up Care Please Follow Up With: Hudson Macedo MD When: Call for an appointment 2 weeks for follow-up Test Results: Test results from this visit will be discussed in further detail at your follow-up appointment, if applicable. Discharge Plan Admission Primary Reason for Your Visit: turp Attending Provider: Hudson Macedo Primary Care Provider: Elijah Lowery Consulting Providers: Jose David Salas Instructions Patient Instructions: [facility] Home Recovery Discharge Orders/Prescriptions Prescriptions: Continued ondansetron 4 mg tablet,disintegrating 4 mg PO Q8H PRN PRN (Reason: Nausea) Qty: 10 0RF latanoprost 0.005 % drops 1 drp EACH EYE QHS potassium chloride 10 mEq capsule, extended release 10 meq PO DAILY atorvastatin 20 mg tablet 20 mg PO QHS sildenafil 50 mg tablet 50 mg PO DAILY PRN PRN (Reason: Sexual Activity) vitamin B complex Tablet 1 tab PO DAILY folic acid 1 mg tablet 1 mg PO DAILY cholecalciferol (vitamin D3) [Vitamin D3] 50 mcg (2,000 unit) Capsule 50 mcg PO DAILY infliximab [Remicade] 100 mg Recon Soln 100 mg IV .Q3WEEK Held aspirin 81 mg Tablet 81 mg PO DAILY Hold Instructions: Resume on 03/18/22. Discontinued tamsulosin 0.4 mg capsule 0.4 mg PO QHS finasteride 5 mg tablet 5 mg PO QHS Referrals / Follow Up: Elijah Lowery MD [Primary Care Provider] - Disposition Disposition (needs filled in before D/C Order can be placed): Home, Self Care
--- NOTE | 2022-03-04 12:01 | PCM.OPRPT ---
Report of Operation Date of Procedure: 03/04/22 Pre-Operative Diagnosis: BPH with retention of urine Post-Operative Diagnosis: The same Surgery/Procedure Performed:: Transurethral section of prostate Description of Surgical Findings:: In the preoperative setting I discussed with the patient how the surgery would be done with expect afterwards. We discussed how a prostate resection is done and we discussed the risk of the surgery including, bleeding, infection, retrograde ejaculation, changes with ejaculation or intercourse,. We discussed the possibility that the resection of the prostate may not alleviate his urinary symptoms. We discussed the small risk of developing scar tissue along the urethral channel and strictures. We also discussed the chance of the prostate could grow back and he may need further surgery or treatment in the future for prostate problems. Patient was taken back to the operating room, timeout procedure was performed, he was identified and marked and placed on the operating room table. He underwent general anesthesia. He was placed in dorsolithotomy position. Penis and testicles were prepped and draped in usual sterile fashion. Went into the bladder using the visual obturator with a resectoscope. Once inside the bladder identified the right and left ureteral orifice. I then identified the prostate and the anatomy of the prostate. I marked out the area of the sphincter and the verumontanum was identified. I then proceeded with the prostate resection first resected the median lobe. And then resected the right lobe of the prostate. Then to resect the left lobe of the prostate. I then resected the apical tissue of the prostate. This was a complete resection of all obstructive tissue to improve voiding and relieve obstruction. I then made sure that there was no injury to the sphincter or the verumontanum was still intact. At the end of the resection all the chips were Ellik out of the bladder. I then identified the left and right ureteral orifice and these were confirmed to be in good position and effluxing and not injured. The resectoscope was removed, a 22 Mongolian catheter was placed into the bladder on continuous irrigation. And the urine was fairly light pink color and draining normally. He was taken back to the PACU in good condition. Surgeon: Hudson Macedo Type of Anesthesia: General Drains: 22 Mongolian three-way Judd Admit VTE Documentation VTE Present on Admission: No VTE Mechan Device Prophylaxis: SCD's VTE Pharm Prophylaxis ordered?: No
[2022-03-04] MEDS: 0.9% Normal Saline 1,000 ML 100 ML IV (13:50)
[2022-03-04] MEDS: Ketorolac 15 MG/ML Vial IV (18:27)
[2022-03-04] MEDS: 0.9% Saline Lock 10 ML Syringe IV (18:27)
[2022-03-04] MEDS: Atorvastatin Calcium 20 MG Tablet PO (20:03)
[2022-03-04] MEDS: Docusate Sodium 100 MG Capsule 200 MG PO (21:14)
[2022-03-04] MEDS: Ciprofloxacin 400 MG/200 ML BAG 200 MG IV (21:15)
[2022-03-04] MEDS: Acetaminophen 325 MG Tablet PO (21:17)
[2022-03-05] MEDS: 0.9% Normal Saline 1,000 ML 100 ML IV (00:05)
[2022-03-05 04:00] VITALS: BP 123/61; PULSE 44; RESP 19; TEMP 36.9; O2SAT 95
[2022-03-05 04:21] VITALS: BP 123/61; PULSE 44; RESP 19; TEMP 36.9; O2SAT 95
--- NOTE | 2022-03-05 07:30 | PCM.PN.BLA ---
Progress Note s/p turp urine clear dc levine home afte voids
[2022-03-05] MEDS: Ketorolac 15 MG/ML Vial IV ×2 (07:49→15:39)
--- NOTE | 2022-03-05 08:15 | PHA.DC.MR ---
Pharmacy Service has performed discharge medication reconciliation for this patient. No new medications at time of discharge review. Medications reviewed are from previously reported home medications. Home Medications ondansetron 4 mg disintegrating tablet 4 mg PO Q8H PRN PRN Nausea #10 tabs 02/12/22 aspirin 81 mg tablet 81 mg PO DAILY heart health 03/02/22 atorvastatin 20 mg tablet 20 mg PO QHS 03/02/22 cholecalciferol (vitamin D3) 50 mcg (2,000 unit) capsule (Vitamin D3) 50 mcg PO DAILY supplement 03/02/22 folic acid 1 mg tablet 1 mg PO DAILY supplement 03/02/22 infliximab 100 mg intravenous solution (Remicade) 100 mg IV .Q3WEEK UC 03/02/22 latanoprost 0.005 % eye drops 1 drp EACH EYE QHS eyes 03/02/22 potassium chloride 10 mEq capsule,extended release 10 meq PO DAILY supplement 03/02/22 sildenafil 50 mg tablet 50 mg PO DAILY PRN PRN Sexual Activity 03/02/22 vitamin B complex 1 tab PO DAILY supplement 03/02/22 The patient's discharge medication list was reviewed for discrepancies and discrepancies were resolved.
[2022-03-05 09:39] VITALS: BP 127/81; PULSE 55; RESP 16; TEMP 36.6; O2SAT 97
[2022-03-05] MEDS: Ciprofloxacin 400 MG/200 ML BAG 200 MG IV (09:56)
[2022-03-05] MEDS: Potassium Chloride Oral Tablet 10 MEQ PO (09:57)
[2022-03-05] MEDS: Folic Acid 1 MG Tablet PO (09:57)
[2022-03-05] MEDS: Docusate Sodium 100 MG Capsule 200 MG PO (09:57)
[2022-03-05] MEDS: 0.9% Saline Lock 10 ML Syringe IV (09:58)
--- NOTE | 2022-03-05 10:21 | NURSING ---
0930 Three-way catheter removed per orders. Balloon and tip intact, patient tolerated well. Urinal placed in restroom and patient aware to call staff after he voids. Patient up and ambulating with family. MELANIA Lund aware
[2022-03-05] MEDS: Acetaminophen 325 MG Tablet PO (12:42)
[2022-03-05 15:59] VITALS: BP 127/76; PULSE 52; RESP 16; TEMP 36.6; O2SAT 98
== END 2022-03-05 16:35 | disposition home or self-care (01) ==
LOC: SDC 14:22 → MS3 14:22
PROVIDERS: Anesthesiology; Admitting Provider Urology; PCP Family Medicine; Referring Provider Urology; Visit Provider Urology
PROC: (CPT 52601; principal; 2022-03-04 11:05)
DX: N40.1 Benign prostatic hyperplasia with lower urinary tract symptoms (principal); R33.8 Other retention of urine; E78.00 Pure hypercholesterolemia, unspecified; F17.220 Nicotine dependence, chewing tobacco, uncomplicated; Z79.82 Long term (current) use of aspirin; Z79.899 Other long term (current) drug therapy; Z86.2 Personal history of diseases of the blood and blood-forming organs and certain disorders involving the immune mechanism
CPT/HCPCS: 52601; 00914; 36415; 51702; 80076; 85027; 85610; 85730; 88305; 93005; 96361; 96365; 96366; 96375; 96376; 99218; 99251; J7030; J7120; A4216; G0378; G0463; J0744; J2405

== ENCOUNTER → 2022-06-16 | Outpatient (CLI) | payer MEDICARE, SELFPAY ==
[2022-06-16 10:54] LABS: PSA,Total - Annual Screen 7.12 ng/mL (0.00-4.00)
== END | disposition home or self-care (01) ==
LOC: LAB 09:59
PROVIDERS: PCP Family Medicine; Visit Provider Registered Nurse
DX: Z12.5 Encounter for screening for malignant neoplasm of prostate (principal)
CPT/HCPCS: 36415; 84153; G0103

== ENCOUNTER → 2022-07-28 | Outpatient (CLI) | payer MEDICARE, SELFPAY ==
[2022-07-28 11:10] LABS: PSA,Total- Diagnostic 3.59 ng/mL (0.0-4.0)
== END | disposition home or self-care (01) ==
LOC: LAB 10:19
PROVIDERS: PCP Family Medicine; Referring Provider Urology; Visit Provider Urology
DX: R97.20 Elevated prostate specific antigen [PSA] (principal)
CPT/HCPCS: 36415; 84153

== ENCOUNTER → 2022-11-04 | Outpatient (CLI) | payer MEDICARE, SELFPAY ==
[2022-11-04 12:57] LABS: ALB/GLOB Ratio 0.9 RATIO (0.9-2.4); AST(SGOT) 23 U/L (15-37); Alanine Aminotransfer ALT/SGPT 22 U/L (16-61); Albumin, Serum 3.4 g/dL (3.2-5.0); Alkaline Phosphatase 63 U/L (45-117); Anion Gap 5 (5-15); BUN 22 mg/dL (7-18); BUN/Creat Ratio 21.4 RATIO (10-20); Calcium,Total 8.8 mg/dL (8.5-10.1); Chloride 109 mmol/L (98-107); Cholesterol 131 mg/dL (200); Creatinine, Serum 1.03 mg/dL (0.70-1.30); EST Glomerular Filtration Rate 74 mL/min (>60); Est Glom Filt Rate - Afr Amer 90 mL/min (>60); Globulin 3.7 g/dL (2.2-4.2); Glucose 105 mg/dL (74-106); High Density Lipoprotein 67 mg/dL; Protein, Total 7.1 g/dL (6.4-8.2); Sodium Level 139 mmol/L (136-145); Triglycerides 45 mg/dL; Very Low Density Lipoprotein 9 mg/dL (5-40)
== END | disposition home or self-care (01) ==
LOC: MFPLAB 09:03
PROVIDERS: PCP Family Medicine; Visit Provider Family Medicine
DX: Z00.00 Encounter for general adult medical examination without abnormal findings (principal); E78.5 Hyperlipidemia, unspecified
CPT/HCPCS: 36415; 80053; 80061

== ENCOUNTER → 2023-06-24 | Outpatient (CLI) | payer MEDICARE, SELFPAY ==
[2023-06-24 11:11] LABS: PSA,Total- Diagnostic 2.47 ng/mL (0.0-4.0)
== END | disposition home or self-care (01) ==
LOC: LAB 09:58
PROVIDERS: PCP Family Medicine; Referring Provider Urology; Visit Provider Urology
DX: R97.20 Elevated prostate specific antigen [PSA] (principal)
CPT/HCPCS: 36415; 84153

== ENCOUNTER → 2023-11-09 | Outpatient (CLI) | payer MEDICARE, SELFPAY | END | disposition home or self-care (01) | LOC: MFPLAB 08:19 | PROVIDERS: PCP Family Medicine; Visit Provider Family Medicine | DX: Z00.00 Encounter for general adult medical examination without abnormal findings (principal) ==

== ENCOUNTER → 2023-11-18 | Outpatient (CLI) | payer MEDICARE, SELFPAY ==
[2023-11-18 13:00] LABS: AST(SGOT) 22 U/L (15-37); Alanine Aminotransfer ALT/SGPT 22 U/L (16-61); Albumin, Serum 3.5 g/dL (3.2-5.0); Alkaline Phosphatase 63 U/L (45-117); Anion Gap 6 (5-15); BUN 24 mg/dL (7-18); BUN/Creat Ratio 21.8 RATIO (10-20); Chloride 107 mmol/L (98-107); Cholesterol 131 mg/dL (200); EST Glomerular Filtration Rate 69 mL/min (>60); Est Glom Filt Rate - Afr Amer 83 mL/min (>60); Globulin 3.6 g/dL (2.2-4.2); Glucose 89 mg/dL (74-106); High Density Lipoprotein 64 mg/dL; Potassium 4.5 mmol/L (3.5-5.1); Protein, Total 7.1 g/dL (6.4-8.2); Sodium Level 139 mmol/L (136-145); Triglycerides 48 mg/dL; Very Low Density Lipoprotein 10 mg/dL (5-40)
== END | disposition home or self-care (01) ==
LOC: MFPLAB 10:43
PROVIDERS: PCP Family Medicine; Visit Provider Family Medicine
DX: E78.5 Hyperlipidemia, unspecified (principal); E87.6 Hypokalemia
CPT/HCPCS: 36415; 80053; 80061

== ENCOUNTER → 2024-05-18 | Outpatient (CLI) | payer MEDICARE, SELFPAY ==
[2024-05-18 10:47] LABS: ALB/GLOB Ratio 1.1 RATIO (0.9-2.4); AST(SGOT) 25 U/L (15-37); Alanine Aminotransfer ALT/SGPT 22 U/L (16-61); Albumin, Serum 3.7 g/dL (3.2-5.0); Alkaline Phosphatase 67 U/L (45-117); Anion Gap 4 (5-15); BUN 20 mg/dL (7-18); BUN/Creat Ratio 17.5 RATIO (10-20); Calcium,Total 8.9 mg/dL (8.5-10.1); Chloride 106 mmol/L (98-107); Cholesterol 134 mg/dL (200); Creatinine, Serum 1.14 mg/dL (0.70-1.30); EST Glomerular Filtration Rate 66 mL/min (>60); Est Glom Filt Rate - Afr Amer 80 mL/min (>60); Globulin 3.4 g/dL (2.2-4.2); Glucose 100 mg/dL (74-106); High Density Lipoprotein 70 mg/dL; Potassium 4.3 mmol/L (3.5-5.1); Protein, Total 7.1 g/dL (6.4-8.2); Sodium Level 138 mmol/L (136-145); Triglycerides 50 mg/dL; Very Low Density Lipoprotein 10 mg/dL (5-40)
== END | disposition home or self-care (01) ==
LOC: MFPLAB 09:17
PROVIDERS: PCP Family Medicine; Visit Provider Family Medicine
DX: E78.5 Hyperlipidemia, unspecified (principal)
CPT/HCPCS: 36415; 80053; 80061

== ENCOUNTER → 2024-06-30 | Outpatient (CLI) | payer MEDICARE, SELFPAY ==
[2024-06-30 13:24] LABS: Hematocrit 46.4 % (40-54); Mean Corp Hgb Conc 34.5 g/dL (32-36); Mean Corpuscular Hgb 33.7 pg (27.0-32.0); Mean Corpuscular Volume 97.7 fL (80-94); Mean Platelet Vol. 10.1 fl (6.2-12.0); Platelet Count 123 K/mm3 (150-450); RBC Distribution Width CV 12.6 % (11.6-14.6); RBC Distribution Width SD 45.9 fl (35.1-43.9); Red Blood Count 4.75 M/mm3 (4.6-6.2); White Blood Count 5.6 K/mm3 (4.4-11.0)
[2024-06-30 13:55] LABS: Anion Gap 4 (5-15); BUN 19 mg/dL (7-18); BUN/Creat Ratio 17.3 RATIO (10-20); Calcium,Total 8.9 mg/dL (8.5-10.1); Chloride 105 mmol/L (98-107); EST Glomerular Filtration Rate 69 mL/min (>60); Est Glom Filt Rate - Afr Amer 83 mL/min (>60); Glucose 106 mg/dL (74-106); PSA,Total - Annual Screen 2.67 ng/mL (0.00-4.00); Sodium Level 136 mmol/L (136-145)
== END | disposition home or self-care (01) ==
LOC: PSN 12:03
PROVIDERS: PCP Family Medicine; Referring Provider Urology; Visit Provider Urology
DX: Z01.810 Encounter for preprocedural cardiovascular examination (principal); Z01.812 Encounter for preprocedural laboratory examination; Z12.5 Encounter for screening for malignant neoplasm of prostate
CPT/HCPCS: 36415; 80048; 84153; 85027; 93005; G0103

== ENCOUNTER 2024-08-09 14:44 | Emergency (ER) | payer MEDICARE, SELFPAY ==
[2024-08-09 14:45] VITALS: BP 169/96; PULSE 98; RESP 18; TEMP 36.6; O2SAT 98
[2024-08-09 15:08] LABS: Absolute Lymphocyte Count 1.23 X10^3/uL (0.83-4.51); Absolute Neutrophil Count 5.8 X10^3/uL (2.0-7.7); Basophil# 0.06 X10^3/uL; Basophil% 0.7 % (0-1); Eosinophil# 0.04 X10^3/uL; Eosinophils% 0.5 % (0-5); Hematocrit 49.8 % (40-54); Hemoglobin 17.6 g/dL (13.0-16.5); Lymphocyte # 1.23 X10^3/ul (0.83-4.51); Lymphocyte % 15.3 % (19-41); Mean Corp Hgb Conc 35.3 g/dL (32-36); Mean Corpuscular Hgb 34.2 pg (27.0-32.0); Mean Corpuscular Volume 96.9 fL (80-94); Monocyte# 0.86 X10^3/uL; Monocyte% 10.7 % (0-10); NRBC Flagged by Analyzer 0 % (0-5); Neutrophil # 5.83 X10^3/uL (2.7-7.7); Neutrophil % 72.6 % (47-70); Platelet Count 124 K/mm3 (150-450); RBC Distribution Width CV 12.8 % (11.6-14.6); Red Blood Count 5.14 M/mm3 (4.6-6.2)
[2024-08-09 15:50] LABS: ALB/GLOB Ratio 1.4 RATIO (0.9-2.4); AST(SGOT) 26 U/L (<=37); Alanine Aminotransfer ALT/SGPT 13 U/L (<=46); Albumin, Serum 4.4 g/dL (3.4-4.8); Alkaline Phosphatase 67 U/L (40-129); Anion Gap 11 (5-15); BUN 28 mg/dL (4-19); BUN/Creat Ratio 19.4 RATIO (10-20); Calcium 9.3 mg/dL (7.6-11.0); Carbon Dioxide 23.8 mmol/L (22.0-29.0); Chloride 103 mmol/L (96-108); Creatinine, Serum 1.5 mg/dL (0.8-1.3); EST Glomerular Filtration Rate 48 (>60); Globulin 3.1 g/dL (2.2-4.2); Glucose 124 mg/dL (70-99); Lipase 18 U/L (13-75); Potassium 4.3 mmol/L (3.3-5.1); Protein, Total 7.5 g/dL (5.9-8.4); Sodium Level 138 mmol/L (133-145); Total Bilirubin 1.14 mg/dL (0.00-1.30)
[2024-08-09 16:40] VITALS: BMI 21.7
[2024-08-09 16:41] VITALS: BP 177/86; PULSE 61; O2SAT 98
[2024-08-09 17:01] LABS: Bacteria 0 SEEN /hpf (None Seen); Mucous, Urine 0 SEEN /hpf (<or=2+); Squamous Epithelial Cells - UA 0 SEEN /hpf (0-5); White Blood Cells 0 SEEN /hpf (0-5)
[2024-08-09 17:08] LABS: Color, Urine Yellow (Yellow); Glucose, Dipstick Normal (Normal); Ketone-Dipstick 5 mg/dl (Negative); Leukocyte Esterase-Dipstick Negative /ul (Negative); Nitrite-Dipstick Negative (Negative); Occult Blood-Urine 250 /ul (Negative); Protein-Dipstick 15 mg/dl (Negative); Specific Gravity, Urine 1.025 (1.002-1.030); Urine Bilirubin Dipstick Negative (Negative); Urine Clarity Clear (Clear); Urine Urobilinogen Normal (Normal)
--- NOTE | 2024-08-09 17:38 | US_ITS ---
PROCEDURE: Testicular ultrasound. REASON FOR EXAM: Right flank pain TECHNIQUE: Ultrasound evaluation of the testicles was performed. COMPARISON: None. FINDINGS: The right testicle is 5.2 x 3.2 x 1.7 cm. The right epididymis is 1.3 cm. The left testicle is 5.2 x 2.5 x 2.0 cm. The left epididymis is 1.1 cm. There is blood flow in both testicles on Doppler evaluation. The testicles are fairly homogeneous in echotexture. No solid intratesticular mass. 3 cm intraparenchymal cyst at the posterior margin right testicle. No sizable scrotal hydrocele or varicocele. US/Testicular with Arterial Flow IMPRESSION: No evidence of testicular torsion or solid intratesticular mass. No sizable scrotal hydrocele or varicocele. Reading Location: [facility]
[2024-08-09 17:40] LABS: Red Blood Cells-Urine 50-100 SEEN /hpf (0-5)
[2024-08-09] MEDS: Ondansetron 4 MG/2 ML Vial IV (17:50)
[2024-08-09] MEDS: Morphine 2 MG/ML Syringe IV (17:50)
[2024-08-09] MEDS: 0.9% Normal Saline (1000mL) 1,000 ML 999 ML IV (17:52)
--- NOTE | 2024-08-09 17:53 | EX.ED.DYSGE1 ---
HPI History of Present Illness Chief Complaint: Abd Pain Narrative Narrative: Chief complaint and HPI: Right flank pain. 79-year-old male with past medical history of ulcerative colitis, TIA presents for evaluation of right flank pain. Onset of symptoms yesterday. Patient endorses right flank/lower quadrant abdominal pain. Denies any fever, chills, shortness of breath, chest pain, nausea, vomiting, dysuria, hematuria. Patient has a history of ulcerative colitis has been in remission. He takes Remicade every 8 weeks. Last injection was June 30. Next dose is due August 25. Patient has an appointment to see [facility] on Wednesday. Of note, patient states on July 07 he had a right cyst removed on his right testicle by Dr. Li. He states since then he has had tenderness in his testicles. He denies any constipation, diarrhea, bloody bowel movements. No history of kidney stones. Review of systems: See HPI Medications: As listed on the chart Allergies: As listed on the chart PFSH: Per chart Vital signs: As listed on the chart. Reviewed. Physical exam: Gen: A&O x3, NAD Head: Normocephalic, atraumatic Eyes: No sclera icterus, conjunctiva clear ENT: Moist mucous membranes Neck: Trachea midline, No JVD CV: RRR, no murmurs, no peripheral edema Resp: Lungs CTA BL, no w/r/c GI: Abd soft, tender to palpation in the suprapubic region as well as right lower quad, non-distended, no rebound or rigidity : Circumcised penis. No penile tenderness or discharge. No penile or testicular swelling. Normal lie and position of the testicles. Bilateral testicle tenderness, incision healed well. No rashes. No palpable hernias. Musc: Full ROM, no deformity Skin: Warm, dry Neuro: Alert, oriented, grossly intact, sensation intact Psych: Cooperative, appropriate mood and affect [facility] Medical History (Updated 08/09/24 @ 20:[address] Marbin Almeida, ) Wears dentures Alcohol use Glaucoma Indwelling urethral catheter present PONV (postoperative nausea and vomiting) Easy bruising Former smoker Seasonal allergies Chews loose leaf tobacco Lymphoma High cholesterol TIA (transient ischemic attack) Colitis Home Medications ?Medication ?Instructions ?Recorded ?Last Taken ?Type aspirin 81 mg tablet 81 mg PO DAILY heart [facility] 03/02/22 02/12/22 History atorvastatin 20 mg tablet 20 mg PO QHS 03/02/22 03/03/22 History cholecalciferol (vitamin D3) 50 50 mcg PO DAILY supplement 03/02/22 03/03/22 History mcg (2,000 unit) capsule (Vitamin D3) folic acid 1 mg tablet 1 mg PO DAILY supplement 03/02/22 03/03/22 History infliximab 100 mg intravenous 100 mg IV .Q3WEEK UC 03/02/22 01/23/22 History solution (Remicade) latanoprost 0.005 % eye drops 1 drp EACH EYE QHS eyes 03/02/22 03/03/22 History potassium chloride 10 mEq 10 meq PO DAILY supplement 03/02/22 03/03/22 History capsule,extended release sildenafil 50 mg tablet 50 mg PO DAILY PRN PRN Sexual 03/02/22 03/03/22 History Activity vitamin B complex 1 tab PO DAILY supplement 03/02/22 03/03/22 History ondansetron 4 mg disintegrating 4 mg PO Q8H PRN PRN Nausea #10 tabs 08/09/24 Unknown Rx tablet oxycodone 5 mg capsule 5 mg PO Q8H PRN pain 3 days #9 caps 08/09/24 Unknown Rx tamsulosin 0.4 mg capsule (Flomax) 0.4 mg PO DAILY 14 days #14 caps 08/09/24 Unknown Rx Allergy/AdvReac Type Severity Reaction Status Date / Time No Known Allergies Allergy Verified 08/09/24 14:48 Family History no significant family his Surgical History History of heart surgery History of colonoscopy History of tonsillectomy History of testicular surgery History of umbilical hernia repair Social History current occupational status: retired Smoking Status: Former smoker EXAM Physical Exam Const Vital Signs: 08/09/24 14:45 08/09/24 16:41 08/09/24 18:00 Temperature 97.9 F Temperature Source Temporal Pulse Rate 98 61 Respiratory Rate 18 Blood Pressure 169/96 H 177/86 H 176/94 H Blood Pressure Mean 120 116 121 Pulse Ox 98 98 95 Oxygen Delivery Method Room Air Room Air 08/09/24 20:00 08/09/24 20:40 Temperature 98.7 F Temperature Source Pulse Rate 63 69 Respiratory Rate 18 18 Blood Pressure 169/90 H 135/89 H Blood Pressure Mean 116 104 Pulse Ox 95 94 Oxygen Delivery Method Room Air MDM MDM MDM Narrative Medical decision making narrative: 79-year-old male with past medical history of ulcerative colitis, TIA presents for evaluation of right flank pain. Patient recently had testicular surgery and testicles are tender as well as right flank. Differential diagnosis includes but is not limited to urolithiasis, appendicitis, colitis, UTI, electrolyte abnormality, epididymitis, testicular torsion, testicular abscess. NS bolus, morphine, Zofran ordered for pain. Abdominal pain workup ordered including CT abdomen pelvis and testicular ultrasound. CBC without leukocytosis. Patient has hemoconcentration, likely secondary to mild dehydration. Chronic thrombocytopenia. BMP mild renal insufficiency with a creatinine of 1.5. Patient's baseline is around 1.2. Lactic acid unremarkable. No transaminitis. Lipase unremarkable. UA positive for blood and small amount of ketones. Consistent with patient's mild dehydration. Concern is for possible urolithiasis given the blood. No UTI. Testicular ultrasound with no evidence of torsion or infection. Patient does have a 3 cm intraparenchymal cyst at the posterior margin of the right testicle. CT abdomen pelvis shows a 3 mm calculus at the right UVJ causing a mild right hydroureteronephrosis. This is likely the cause of the patient's right flank pain. Given that it is less than 5 mm it is likely to pass. No bowel infection. Similar appearance of enlarged heterogeneous prostate gland. He has a known and similar right hepatic lobe cyst. He has right renal cysts. Patient needs follow-up renal ultrasound in 6 months. Patient has a noninfected urolithiasis. On reevaluation, patient states that his pain is controlled. He was given the option of admission for observation for pain control versus discharge home. Patient would like to discharge home. He was informed that he will be placed on Flomax, Zofran, and narcotics as needed for pain. This is to help pass the stone. He was educated on the use of narcotics in the elderly. He confirmed and understood the risks. Given that he follows with urology he asked me to reach out to his doctor Dr. Clay. He is not on-call today and therefore I was unable to get of hold of him as he is on vacation. Patient confirmed understanding. He needs to follow-up with him in the office as well as his PCP. He was given strict return precautions. He was educated that he needs to take in plenty of fluids. He was educated that he has some mild renal insufficiency secondary to the stone. He was given an order to have his labs repeated outpatient to make sure that this is resolving. He is to follow-up with his PCP for the results. He confirmed understanding. He was also educated that he needs the renal ultrasound. Impression: 1. Right urolithiasis with mild hydroureteronephrosis 2. Mild dehydration/renal insufficiency 3. Known right hepatic lobe cyst 4. Multiple right renal cysts, need follow-up renal ultrasound in 6 months 5. Enlarged heterogeneous prostate gland, known 6. 3 cm intraparenchymal cyst at the posterior margin of the right testicle 7. Chronic thrombocytopenia Lab Data Labs: Laboratory Results - last 24 hr 08/09/24 08/09/24 08/09/24 14:45 16:55 17:46 WBC 8.0 RBC 5.14 Hgb 17.6 H Hct 49.8 MCV 96.9 H MCH 34.2 H MCHC 35.3 RDW Std Deviation 46.0 H RDW Coeff of Julito 12.8 Plt Count 124 L MPV 10.0 Immature Gran % (Auto) 0.200 Neut % (Auto) 72.6 H Lymph % (Auto) 15.3 L Whitman % (Auto) 10.7 H Eos % (Auto) 0.5 Baso % (Auto) 0.7 Absolute Neuts (auto) 5.8 Absolute Lymphs (auto) 1.23 Nucleated RBC % 0 Sodium 138 Potassium 4.3 Chloride Direct 103 Carbon Dioxide 23.8 Anion Gap 11 BUN 28 H Creatinine 1.5 H Est GFR (MDRD) Non-Af 48 L BUN/Creatinine Ratio 19.4 Glucose 124 H Lactic Acid < 1.0 Calcium 9.3 Total Bilirubin 1.14 AST 26 ALT 13 Alkaline Phosphatase 67 Total Protein 7.5 Albumin 4.4 Globulin 3.1 Albumin/Globulin Ratio 1.4 Lipase 18 Urine Color Yellow Urine Clarity Clear Urine pH 6.0 Ur Specific Sutton 1.025 Urine Protein 15 H Urine Glucose (UA) Normal Urine Ketones 5 H Urine Occult Blood 250 H Urine Nitrite Negative Urine Bilirubin Negative Urine Urobilinogen Normal Ur Leukocyte Esterase Negative Urine RBC 50-100 SEEN Urine WBC 0 SEEN Ur Squamous Epith Cells 0 SEEN Urine Bacteria 0 SEEN Urine Mucus 0 SEEN Radiography Diagnostic Testing: Clinical Impression(s) from Imaging Studies Testicular Ultrasound 08/09/24 17:38 IMPRESSION: No evidence of testicular torsion or solid intratesticular mass. No sizable scrotal hydrocele or varicocele. Reading Location: [facility] Abdomen/Pelvis CT 08/09/24 17:55 IMPRESSION: 3 mm obstructing calculus at the right ureterovesical junction causing at least mild right hydroureteronephrosis. No bowel obstruction or perforation. No evidence of acute appendicitis. Similar appearance of enlarged heterogeneous prostate gland. Suggest correlation with PSA values. Similar 1.8 cm cyst right hepatic lobe. No dedicated imaging follow-up recommended. A few simple appearing right renal cysts are present, the largest at the posterior inferior aspect measuring 2.6 cm. This is slightly larger compared to 2.1 cm on the 02/12/2022 study. Suggest a follow-up renal ultrasound in 6 months to document stability. One or more dose reduction techniques were used (e.g., Automated exposure control, adjustment of the mA and/or kV according to patient size, use of iterative reconstruction technique). Reading Location: [facility] Discharge Plan Triage Chief Complaint: Abd Pain ED Provider: Marbin Almeida Dx/Rx/DC Orders Clinical Impression: Urolithiasis Instructions: ED Kidney Stone with Pain Prescriptions: New tamsulosin [Flomax] 0.4 mg capsule 0.4 mg PO DAILY 14 Days Qty: 14 0RF oxycodone 5 mg capsule 5 mg PO Q8H PRN (Reason: pain) 3 Days Qty: 9 0RF ondansetron 4 mg tablet,disintegrating 4 mg PO Q8H PRN PRN (Reason: Nausea) Qty: 10 0RF No Action latanoprost 0.005 % drops 1 drp EACH EYE QHS potassium chloride 10 mEq capsule, extended release 10 meq PO DAILY atorvastatin 20 mg tablet 20 mg PO QHS sildenafil 50 mg tablet 50 mg PO DAILY PRN PRN (Reason: Sexual Activity) vitamin B complex Tablet 1 tab PO DAILY folic acid 1 mg tablet 1 mg PO DAILY aspirin 81 mg Tablet 81 mg PO DAILY cholecalciferol (vitamin D3) [Vitamin D3] 50 mcg (2,000 unit) Capsule 50 mcg PO DAILY infliximab [Remicade] 100 mg Recon Soln 100 mg IV .Q3WEEK Other Ambulatory Orders: Basic Metabolic Profile (BMP) (Routine) Timeframe: 2 Days Facility: [facility] - Location: Laboratory [facility] Provider: Elijah Lowery Referrals: Hudson Macedo MD [Med Staff - Active Staff] - 3-5 Days Elijah Lowery MD [Primary Care Provider] - 3-5 Days Activity Restrictions/Additional Instructions: Return back to the ED if symptoms change or worsen. Take OTC medications for pain control. Narcotics for severe pain control. Narcotics can increase confusion and falls in the elderly. Do not drive or operate heavy machinery while taking narcotics. Follow-up with urology as well as PCP. Your kidney function was mildly elevated here in the emergency department. I wrote a prescription to have your creatinine rechecked. Print Language: Hungarian Disposition Disposition: Home, Self Care Discharge Date/Time: 08/09/24 20:49
--- NOTE | 2024-08-09 17:55 | CT_ITS ---
PROCEDURE: CT of the abdomen/pelvis with IV contrast. REASON FOR EXAM: Right lower abdominal pain TECHNIQUE: After the administration of 97 cc Isovue-300 IV contrast, contiguous axial CT images were obtained through the abdomen/pelvis. Sagittal and coronal reformats were created. COMPARISON: 02/12/2022 FINDINGS: The bones are osteopenic with degenerative changes in the spine, greatest at the L5-S1 level. The proximal femurs are intact. Moderate degenerative changes in the hip joints, greatest on the left. Heart is not enlarged. No sizable pericardial effusion. Moderate coronary artery calcifications. Mild areas of scarring or subsegmental atelectasis in the lower lungs. The abdominal aorta is normal in caliber with a moderate amount of atherosclerotic calcification distally. Patchy wall thickening of the stomach may be due to lack of distention versus peristalsis. No calcified gallstones or abnormal dilation of the biliary tree. Portal vein is patent. 18 mm probable cyst central right hepatic lobe image 32 of the axial lung windows similar to the 02/12/2022 study. No concerning liver lesion. The adrenal glands, spleen, and pancreas show no specific abnormality. No abnormally dilated bowel segments or free intraperitoneal air. No focal abnormality of the urinary bladder. No large abdominal wall defect. Mildly enlarged heterogeneous prostate gland similar to the previous study. Judd catheter present on the prior study has been removed. Scattered patchy wall thickening of the colon may be due to lack of distention versus peristalsis [id number] stool in the colon. No evidence of acute appendicitis. There is a delayed nephrogram on the right. No solid-appearing renal mass is demonstrated. No obstructive uropathy on the left. There is dilation of the right renal collecting system and right ureter down to an obstructing 3 mm calculus at the right UVJ image 99 of the axial data set. There are a few simple appearing right renal cysts, the largest of the posterior inferior margin measuring 2.[address]/Abdomen/Pelvis W IV Cont ONLY IMPRESSION: 3 mm obstructing calculus at the right ureterovesical junction causing at least mild right hydroureteronephrosis. No bowel obstruction or perforation. No evidence of acute appendicitis. Similar appearance of enlarged heterogeneous prostate gland. Suggest correlati on with PSA values. Similar 1.8 cm cyst right hepatic lobe. No dedicated imaging follow-up recomme nded. A few simple appearing right renal cysts are present, the largest at the over hauler helper ior inferior aspect measuring 2.6 cm. This is slightly larger compared to 2.1 cm on the 02/12/2022 study. Suggest a follow-u p renal ultrasound in 6 months to document stability. One or more dose reduction techniques were used (e.g., Automated exposure contr ol, adjustment of the mA and/or kV according to patient size, use of iterative reconstruction technique). Reading Location: [facility]
[2024-08-09 18:00] VITALS: BP 176/94; O2SAT 95
[2024-08-09 18:36] LABS: Lactic Acid < 1.0 mmol/L (0.0-2.0)
[2024-08-09] MEDS: Morphine 4 MG/ML Syringe 2 MG IV (18:38)
[2024-08-09] MEDS: oxyCODONE 5 MG Tablet PO (19:52)
[2024-08-09 20:00] VITALS: BP 169/90; PULSE 63; RESP 18; O2SAT 95
[2024-08-09 20:40] VITALS: BP 135/89; PULSE 69; RESP 18; TEMP 37.1; O2SAT 94
== END 2024-08-09 20:49 | disposition home or self-care (01) ==
PROVIDERS: Emergency Provider Surgery; PCP Family Medicine; Visit Provider Surgery
DX: N13.2 Hydronephrosis with renal and ureteral calculous obstruction (principal); E86.0 Dehydration; N44.2 Benign cyst of testis; N40.0 Benign prostatic hyperplasia without lower urinary tract symptoms; D69.6 Thrombocytopenia, unspecified; E78.00 Pure hypercholesterolemia, unspecified; N50.811 Right testicular pain; N50.812 Left testicular pain; N28.1 Cyst of kidney, acquired; R10.30 Lower abdominal pain, unspecified; F17.220 Nicotine dependence, chewing tobacco, uncomplicated; Z86.73 Personal history of transient ischemic attack (TIA), and cerebral infarction without residual deficits; Z87.19 Personal history of other diseases of the digestive system
CPT/HCPCS: 74177; 76870; 80053; 81001; 83605; 83690; 85025; 93976; 96361; 96374; 96375; 96376; 99283; A4216; J2405

== ENCOUNTER → 2024-08-16 | Outpatient (CLI) | payer MEDICARE, SELFPAY ==
[2024-08-16 10:49] LABS: Prothrombin Time (Protime)PT. 13.5 SECONDS (11.7-14.9)
[2024-08-16 11:42] LABS: Hepatitis B Surface Antibody Nonreactive; Hepatitis C Antibody Nonreactive (Nonreactive)
[2024-08-16 11:43] LABS: CRP < 3.00 mg/L (0.0-3.0)
[2024-08-19 16:08] LABS: Hepatitis A AB, Total Positive (Negative); Hepatitis B Core Ab Total Negative (Negative); QNTFERON TB Mitogen Value > 10.00 IU/mL (.); QNTFERON TB Nil Value 0.07 IU/mL (.); QNTFERON TB1+ Ag Value 0.06 IU/mL (.); QNTFERON TB2+ Ag Value 0.08 IU/mL (.); QNTIFERON TB Positive Criteria Negative (Negative)
== END | disposition home or self-care (01) ==
LOC: LAB 09:37
PROVIDERS: PCP Family Medicine; Referring Provider Nurse Practitioner Acute Care; Visit Provider Nurse Practitioner Acute Care
DX: K51.90 Ulcerative colitis, unspecified, without complications (principal); D69.6 Thrombocytopenia, unspecified
CPT/HCPCS: 36415; 85610; 86140; 86480; 86704; 86706; 86708; 86803

== ENCOUNTER → 2024-08-25 | Outpatient (CLI) | payer MEDICARE, SELFPAY ==
[2024-08-28 17:07] LABS: Calprotectin, Stool 67 ug/g (0-120)
== END | disposition home or self-care (01) ==
LOC: LABSPEC 08:22
PROVIDERS: PCP Family Medicine; Referring Provider Nurse Practitioner Acute Care; Visit Provider Nurse Practitioner Acute Care
DX: K51.90 Ulcerative colitis, unspecified, without complications (principal); D69.6 Thrombocytopenia, unspecified
CPT/HCPCS: 83993

== ENCOUNTER → 2024-09-14 | Outpatient (CLI) | payer MEDICARE, SELFPAY ==
--- NOTE | 2024-09-14 09:00 | RAD_ITS ---
EXAM: XR Abdomen, 1 View CLINICAL INDICATION: CALCULUS OF KIDNEY TECHNIQUE: Frontal supine view of the abdomen/pelvis. COMPARISON: No relevant prior studies available. FINDINGS: GASTROINTESTINAL TRACT: Unremarkable. No dilation. ORGANS: Stool burden limits evaluation for subtle renal calculi. No obvious nephrolithiasis. BONES/JOINTS: Unremarkable. No acute fracture. RAD/Abdomen Single View IMPRESSION: Stool burden limits evaluation for subtle renal calculi. No obvious nephrolith iasis. Reading Location: [facility]
== END | disposition home or self-care (01) ==
LOC: RAD 08:51
PROVIDERS: PCP Family Medicine; Referring Provider Urology; Visit Provider Urology
DX: N20.0 Calculus of kidney (principal)
CPT/HCPCS: 74018

== ENCOUNTER 2024-10-20 08:31 | Outpatient (CLI) | payer MEDICARE, SELFPAY ==
[2024-10-20 08:43] VITALS: BP 143/75; PULSE 55; RESP 16; TEMP 35.7; O2SAT 99; BMI 21.8
[2024-10-20] MEDS: 0.9% NaCl Peripheral Flush Adult IV (09:09)
[2024-10-20] MEDS: NORMAL SALINE 0.9% IV (09:18)
[2024-10-20] MEDS: INFLIXIMAB DYYB IV (09:18)
== END 2024-10-20 23:59 | disposition home or self-care (01) ==
LOC: MEDOUTP 08:32
PROVIDERS: PCP Family Medicine; Referring Provider Nurse Practitioner Acute Care; Visit Provider Nurse Practitioner Acute Care
DX: K51.90 Ulcerative colitis, unspecified, without complications (principal)
CPT/HCPCS: 96413; 96415; A4216; Q5103

== ENCOUNTER 2024-10-26 08:41 | Day surgery (SDC) | payer MEDICARE, SELFPAY ==
[2024-10-26] VITALS (8 sets, daily range): BP systolic 91–155; BP diastolic 59–81; PULSE 49–57; RESP 16–18; TEMP 36.1–36.7; O2SAT 97–100; BMI 20.6
[2024-10-26] MEDS: Lactated Ringers 1,000 ML 15 ML IV (09:35)
--- NOTE | 2024-10-26 09:50 | PCM.PRE.AN2 ---
ASA Classification* ASA Classification ASA Classification: 3 Assessment & Plan Anesthesia* Anesthesia Assessment Anesthesia Assessment: Discussed sedation and/or anesthesia options, risks, benefits, and alternatives with patient/parents/legal guardian/POA. Questions invited. The patient/parents/legal guardian/POA seems to understand and agrees to proceed with anesthesia plan. Reviewed the physical assessment, medical history, allergy history and patient home medications list prior to surgery/procedure/anesthetic and documented any changes. Performed airway and anesthesia risk assessments. Anesthesia Type Anesthesia Type: MAC History Source History Obtained from:: Patient and Chart Anesthesia Focused Assessment* Temperature: 97.4 F Pulse Rate: 50 Blood Pressure: 155/81 Respiratory Rate: 18 Pulse Ox: 99 Oxygen Delivery Method: Room Air Airway Assessment Mouth opens: >3 cm Mallampati Score: II Teeth Condition: Dentures Focused Labs Anesthesia Preop lab: CBC WBC 8.0 K/mm3 (4.4-11.0) 08/09/24 14:45 08/09/24 RBC 5.14 M/mm3 (4.6-6.2) 08/09/24 14:45 08/09/24 Hgb 17.6 g/dL (13.0-16.5) H 08/09/24 14:45 08/09/24 Hct 49.8 % (40-54) 08/09/24 14:45 08/09/24 Plt Count 124 K/mm3 (150-450) L 08/09/24 14:45 08/09/24 CHEMISTRY Potassium 4.3 mmol/L (3.3-5.1) 08/09/24 14:45 08/09/24 Sodium 138 mmol/L (133-145) 08/09/24 14:45 08/09/24 BUN 28 mg/dL (4-19) H 08/09/24 14:45 08/09/24 Creatinine 1.5 mg/dL (0.8-1.3) H 08/09/24 14:45 08/09/24 Glucose 124 mg/dL (70-99) H 08/09/24 14:45 08/09/24 COAG PT 13.5 SECONDS (11.7-14.9) 08/16/24 09:41 08/16/24 Pre-Assessment Diagnosis/Proposed Procedure Planned Operative Procedure(s): CSCOPE Anesthesia History 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 When Was Last Pacemaker Check QUESTION #4 FULL TEXT: You/Your Family Experience fever (hyperthermia) with Anesthesia Last Oral Intake Last Oral intake: Last Oral Intake NPO since 05:00 10/26/24 09:23 Meds taken in AM with sips of No 10/26/24 09:23 water? Meds patient instructed to take am of surgery PONV PONV - marketing rotation associate: PONV - marketing rotation associate Female No 10/25/24 11:43 HX of Motion Sickness Yes 10/25/24 11:43 HX of N/V After Surgery No 10/25/24 11:43 Non-Smoker Yes 10/25/24 11:43 Duration of Surgery greater No 10/25/24 11:43 than 60 minutes Number of Risk Factors 2 10/25/24 11:43 PONV Score Moderate Risk 10/25/24 11:43 Height & Weight Height & Weight: Anesthesia: Height & Weight Height 6 ft 10/26/24 09:23 Weight: 69 kg 10/26/24 09:23 Body Mass Index (BMI) 20.6 10/26/24 09:23 Respiratory Assessment Respiratory Assessment - marketing rotation associate: Respiratory Tract Infection Hx - marketing rotation associate Hx Respiratory Tract Infection No 10/25/24 11:43 STOP Sleep Apnea STOP Sleep Apnea - marketing rotation associate: STOP Sleep Apnea - marketing rotation associate Hx Hypertension No 10/25/24 11:43 Hx Sleep Apnea No 10/25/24 11:43 CPAP BIPAP Do you snore loudly (louder No 10/25/24 11:43 than talking or can be heard Do you often feel tired/ No 10/25/24 11:43 fatigued/ sleepy during daytime? Has anyone observed you stop No 10/25/24 11:43 breathing during sleep? STOP Results Negative 10/25/24 11:43 QUESTION #5 FULL TEXT : Do you snore loudly (louder than talking or can be heard through closed doors)? 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 Specify any problems Hx of Preganancy in last 3 N/A 10/25/24 11:43 Months Nurse Filling Out Transfusion NBUCHER 10/25/24 11:43 & Questions: Date: 10/25/24 10/25/24 11:43 Time: 11:44 10/25/24 11:43 Patient unable to answer at this time (ie. confused, unrespo /Reproduction History /Reproductive History - marketing rotation associate: /Reproductive Hx- marketing rotation associate Hx Now No 10/25/24 11:43 Gestational Age (in weeks): EDC: Hx Hx Para Hx Section SAB No 10/25/24 11:43 Active Medications Active Medications: Current Medications Generic Name Dose Route Start Last Admin Trade Name Freq PRN Reason Stop Dose Admin Lactated Ringer's 1,000 mls @ 15 mls/hr 10/26/24 09:00 10/26/24 09:35 IV 15 mls/hr .Q48H CARLY Administration PFSH Medical History Loss of hearing Wears glasses Heartburn Non-smoker History of stress test Kidney stones Wears dentures Alcohol use Glaucoma PONV (postoperative nausea and vomiting) Easy bruising Former smoker Seasonal allergies Chews loose leaf tobacco Lymphoma High cholesterol TIA (transient ischemic attack) Colitis Home Medications ?Medication ?Instructions ?Recorded ?Last Taken ?Type aspirin 81 mg tablet 81 mg PO DAILY heart health 03/02/22 10/24/24 History atorvastatin 20 mg tablet 20 mg PO QHS 03/02/22 10/25/24 History cholecalciferol (vitamin D3) 50 50 mcg PO DAILY supplement 03/02/22 10/23/24 History mcg (2,000 unit) capsule (Vitamin D3) folic acid 1 mg tablet 1 mg PO DAILY supplement 03/02/22 10/23/24 History latanoprost 0.005 % eye drops 1 drp EACH EYE QHS eyes 03/02/22 10/25/24 History potassium chloride 10 mEq 10 meq PO DAILY supplement 03/02/22 10/23/24 History capsule,extended release sildenafil 50 mg tablet 50 mg PO DAILY PRN PRN Sexual 03/02/22 03/03/22 History Activity vitamin B complex 1 tab PO DAILY supplement 03/02/22 10/23/24 History ondansetron 4 mg disintegrating 4 mg PO Q8H PRN PRN Nausea #10 tabs 08/09/24 10/25/24 Rx tablet ondansetron HCl 4 mg tablet 4 mg PO .COMPLEX #5 tabs 08/16/24 Unknown Rx Allergy/AdvReac Type Severity Reaction Status Date / Time No Known Allergies Allergy Verified 10/26/24 09:22 Surgical History History of transurethral resection of prostate History of lithotripsy History of colonoscopy History of tonsillectomy History of testicular surgery History of umbilical hernia repair Social History current occupational status: retired Smoking Status: Former smoker Addt'l Information Additional Findings: EKG NSR Review of Systems (Anesthesia) ROS Narrative System reviewed and no additional complaints, except as documented. Physical Exam Const alert and oriented x3 Resp normal respiratory effort and normal air movement Auscultation: clear to auscultation bilaterally Cardio regular rate and regular rhythm Neuro oriented x3 and moves all extremities
--- NOTE | 2024-10-26 10:00 | COLBX_PTH ---
PATIENT: SHARONDA MELISSA LOC: EN U#:[id number] AGE/SX: 79/M ROOM: RE10/26/[address]: Dr. Raymond Sanchez DO : 1945 BED: DIS: 10/26/2024 SPEC #: [id number] RECD: 10/26/24 13:33 STATUS: TUCKER RERuth #: [id number] ARCADIO: 10/26/24 10:[address]: Raymond Sanchez DEPT: SURGICAL PATHOLOGY RECD BY: Refugio Alcantara ENTERED: 10/26/24 15:09 SP TYPE: COLON BX COOPER DR: Dr. Elijah Lowery MD Tissues: A - COLON BIOPSY B - Transverse colon C - COLON BIOPSY D - Rectum, NOS Procedures: Surgery Specimen Level IV HEADER OPERATION: Colonoscopy with biopsy PRE-OP DIAGNOSIS: Ulcerative colitis TISSUE SUBMITTED: A- Right side colon biopsy, B- Transverse colon biopsy, C- Left side colon biopsy, D- Rectum biopsy MICROSCOPIC DIAGNOSIS A. Colon, right side, biopsy: Increased intraepithelial lymphocytosis consistent with lymphocytic (microscopic) colitis - see Comment. B. Transverse colon, biopsy: Increased intraepithelial lymphocytosis consistent with lymphocytic (microscopic) colitis - see Comment. C. Colon, left side, biopsy: Increased intraepithelial lymphocytosis consistent with lymphocytic (microscopic) colitis - see Comment. D. Rectum, biopsy: Increased intraepithelial lymphocytosis consistent with lymphocytic (microscopic) colitis - see Comment. COMMENT A-D) The histologic findings are most consistent with lymphocytic colitis. There is minimal crypt distortion and no significant thickening of the subepithelial collaged table. No granulomas or dysplasia seen. The stated history of ulcerative colitis is noted. No prior pathology is available for review. MICROSCOPIC DESCRIPTION Slides are reviewed. GROSS DESCRIPTION A. Received in formalin in a container labeled with the patient's name, date of , and right sided colon biopsy are multiple simpson-pink fragments of mucosal tissue measuring 0.9 x 0.6 x 0.3 cm in aggregate. Submitted in toto in A1. B. Received in formalin in a container labeled with the patient's name, date of , and transverse colon biopsy are 2 simpson-pink fragments of mucosal tissue each measuring approximately 0.5 x 0.2 x 0.2 cm. Submitted in toto in B1. C. Received in formalin in a container labeled with the patient's name, date of , and left side colon biopsy are multiple simpson-pink fragments of mucosal tissue measuring 1.3 x 0.6 x 0.3 cm in aggregate. Submitted in toto in C1. D. Received in formalin in a container labeled with the patient's name, date of , and rectum biopsy are 2 simpson-pink fragments of mucosal tissue each measuring 0.3 x 0.3 x 0.3 cm. Submitted in toto in D1. [facility] 10-26-2024 CPT:02443q9
--- NOTE | 2024-10-26 10:36 | PCM.HP.STD ---
HPI - General General Date of Admission: 10/26/24 Date of Service: 10/26/24 Chief Complaint: Ulcerative colitis HPI Narrative SHARONDA MELISSA, is a 79 M who presents for the surveillance of ulcerative Colitis Kayce ROWLAND Initial Diagnosis: >20 years ago - Bleeding, diarrhea up to 40x a day - reports he was on prednisone, mesalamine, methotrexate, enemas, suppositories before starting Remicade CBC: 08/09/2024 HGB 17.6, PLT 124, MCV 96.9 CMP: 08/09/2024 Albumin 4.4, transaminases normal CRP: 08/25/2020 normal VITAMIN D: Lipase: 08/09/2024 WNL QUANTIFERON: HBVsAb: HBVsAg: HBV Core Total Ab: Fecal Calprotectin: SB imaging: CT w/ IV contrast 08/09/2024 Patchy wall thickening of the stomach may be due to lack of distention versus peristalsis. Stable hepatic cyst. Scattered patchy wall thickening of the colon may be due to lack of distention versus peristalsis [id number] stool in the colon. COLON: He reports his last colonoscopy was with Dr. Hicks September 2020 11/28/2019 (Dr. Almonte) biopsies negative for active inflammation and dysplasia MEDS: BIOLOGICS: Remicade 5mg/kg every 8 weeks last dose 06/30/2024 next due 08/25/2024 ([facility]) - reports he has been on Remicade for 17-18 years STEROIDS: none in the past 16+ years VACCINES COVID: yes Varicella Vaccine: exposed as a child Shingles Vaccine: yes Hepatitis B Vaccine: Pneumonia Vaccine: yes Influenza Vaccine: current season EtOH: beer a day, never heavy alcohol use - reports he was once told he has FLD IBD SYMPTOMS: Bowel movements are: 2x a day, formed Blood noted in stools: denies Bowel movement urgency present: denies Stool incontinence: denies Nocturnal BM's: denies Abdominal pain: denies Rectal pain: denies QOL: great, still drives, remains active ROS: Fever: denies Night Sweats: denies Visual changes: denies Mouth sores: denies Joint pain: denies Skin rashes/Lesions: denies Weight changes: denies Smoking status: denies NSAID use: very rare Discussed importance of influenza vaccine yearly Discussed risk of basal cell cancers developing in patients on TNF therapy. I have recommended routine dermatology screenings, at least yearly. RECALL COLONOSCOPY NOW PFSH Medical History Loss of hearing Wears glasses Heartburn Non-smoker History of stress test Kidney stones Wears dentures Alcohol use Glaucoma PONV (postoperative nausea and vomiting) Easy bruising Former smoker Seasonal allergies Chews loose leaf tobacco Lymphoma High cholesterol TIA (transient ischemic attack) Colitis Home Medications ?Medication ?Instructions ?Recorded ?Last Taken ?Type aspirin 81 mg tablet 81 mg PO DAILY heart health 03/02/22 10/24/24 History atorvastatin 20 mg tablet 20 mg PO QHS 03/02/22 10/25/24 History cholecalciferol (vitamin D3) 50 50 mcg PO DAILY supplement 03/02/22 10/23/24 History mcg (2,000 unit) capsule (Vitamin D3) folic acid 1 mg tablet 1 mg PO DAILY supplement 03/02/22 10/23/24 History latanoprost 0.005 % eye drops 1 drp EACH EYE QHS eyes 03/02/22 10/25/24 History potassium chloride 10 mEq 10 meq PO DAILY supplement 03/02/22 10/23/24 History capsule,extended release sildenafil 50 mg tablet 50 mg PO DAILY PRN PRN Sexual 03/02/22 03/03/22 History Activity vitamin B complex 1 tab PO DAILY supplement 03/02/22 10/23/24 History ondansetron 4 mg disintegrating 4 mg PO Q8H PRN PRN Nausea #10 tabs 08/09/24 10/25/24 Rx tablet ondansetron HCl 4 mg tablet 4 mg PO .COMPLEX #5 tabs 08/16/24 Unknown Rx Allergy/AdvReac Type Severity Reaction Status Date / Time No Known Allergies Allergy Verified 10/26/24 09:22 Surgical History History of transurethral resection of prostate History of lithotripsy History of colonoscopy History of tonsillectomy History of testicular surgery History of umbilical hernia repair Social History current occupational status: retired Smoking Status: Former smoker ROS Constitutional Constitutional: Denies fatigue, fever(s), poor appetite, weight gain or weight loss Gastrointestinal Gastrointestinal: Denies belching, bloating, change in bowel habits, change in stool character, chewing difficulty, coffee ground emesis, constipation, cramping, diarrhea, dyspepsia, dysphagia, early satiety, excessive flatus, fecal incontinence, heartburn, hematemesis, hematochezia, hemorrhoids, loose stools, melena, nausea, odynophagia, rectal bleeding, tenesmus, vomiting or weight changes Vital Signs Vital Signs Vital Signs: 10/26/24 09:23 10/26/24 09:23 10/26/24 09:56 Temperature 97.4 F L 97.4 F L Temperature Source Temporal Pulse Rate 50 L 50 L Respiratory Rate 18 18 Respiratory Pattern Normal Blood Pressure 155/81 H 155/81 H Blood Pressure Mean 105 Blood Pressure Source Monitor Blood Pressure Position Semi-Fowlers Blood Pressure Location Left Arm Pulse Ox 99 99 Oxygen Delivery Method Room Air Room Air Weight Weight: 152 lb 1.903 oz Body Mass Index (BMI) 20.6 Physical Exam Const alert, oriented x3, no apparent distress and healthy appearing General Appearance: cooperative GI normal to inspection, nondistended, normoactive bowel sounds, soft to palpation, non-tender and non-distended Percussion: normal to percussion Rectal Exam: deferred Assessment & Plan Assessment/Plan (1) Ulcerative colitis: QUALIFIERS: Ulcerative colitis location: unspecified ulcerative colitis location (2) Thrombocytopenia: PLAN: Assessment and Plan Assessment and Plan (1) Thrombocytopenia: Status: Acute Plan: ABD US PT/INR Hepatitis panel & ELF for reported history of liver steatosis (2) Ulcerative colitis: Status: Acute Qualifiers: Ulcerative colitis location: unspecified ulcerative colitis location Plan: Colonoscopy yearly Labs today Fecal Calprotectin Discussed importance of influenza vaccine yearly Discussed risk of basal cell cancers developing in patients on TNF therapy. I have recommended routine dermatology screenings, at least yearly. Discussed increased risk of developing a colorectal cancer 10 years post IBD diagnosis OV in 6 months Continue Remicade 5mg/kg every 8 weeks at [facility] Orders:
--- NOTE | 2024-10-26 11:21 | PCM.POST.ANE ---
Anesthesia: Postop Eval I Current Vital Signs Temperature: 97 F Pulse Rate: 57 Blood Pressure: 91/59 Respiratory Rate: 16 Pulse Ox: 99 Oxygen Delivery Method: Room Air Assessment Airway patent: Yes Spontaneous unlabored respirations: Yes Mental status: Awake and Calm nausea: No Vomiting: No Anesthesia Complication: No Fluid Hydration Crystalloid volume administer (ml): 500 Total IV fluid infused: 500 Progress Note Anesthesia document: Postop Eval 1 completed: Yes
--- NOTE | 2024-10-26 11:24 | OP.COLON_ITS ---
Patient Name: Renny Barone Procedure Date: 10/26/2024 10:42 AM Date of : 1945 Age: 79 Procedure: Colonoscopy Indications: High risk colon cancer surveillance: Ulcerative left sided colitis of 8 (or more) years duration Providers: Raymond Sanchez DO Referring MD: Elijah Lowery MD Medicines: Monitored Anesthesia Care Patient Profile: This is an 79 year old male. Refer to note in patient chart for documentation of history and physical. Last Colonoscopy: several years ago. Complications: No immediate complications. Procedure: Pre-Anesthesia Assessment: - Prior to the procedure, a History and Physical was performed, and patient medications and allergies were reviewed. The patient is competent. The risks and benefits of the procedure and the sedation options and risks were discussed with the patient. All questions were answered and informed consent was obtained. Patient identification and proposed procedure were verified by the physician in the pre-procedure area. Mental Status Examination: alert and oriented. Airway Examination: normal oropharyngeal airway and neck mobility. Respiratory Examination: clear to auscultation. CV Examination: normal. Prophylactic Antibiotics: The patient does not require prophylactic antibiotics. Prior Anticoagulants: The patient has taken no anticoagulant or antiplatelet agents except for NSAID medication. ASA Grade Assessment: II - A patient with mild systemic disease. After reviewing the risks and benefits, the patient was deemed in satisfactory condition to undergo the procedure. The anesthesia plan was to use monitored anesthesia care (MAC). Immediately prior to administration of medications, the patient was re-assessed for adequacy to receive sedatives. The heart rate, respiratory rate, oxygen saturations, blood pressure, adequacy of pulmonary ventilation, and response to care were monitored throughout the procedure. The physical status of the patient was re-assessed after the procedure. After I obtained informed consent, the scope was passed under direct vision. Throughout the procedure, the patient's blood pressure, pulse, and oxygen saturations were monitored continuously. The Colonoscope was introduced through the anus and advanced to the terminal ileum. The colonoscopy was performed without difficulty. The patient tolerated the procedure well. The quality of the bowel preparation was adequate. The terminal ileum, ileocecal valve, appendiceal orifice, and rectum were photographed. Scope In: 10:57:47 AM Scope Withdrawal Time 0 hours 10 minutes 45 seconds Scope Out: 11:12:20 AM Total Procedure Duration Time 0 hours 14 minutes 33 seconds Findings: The perianal and digital rectal examinations were normal. Inflammation was found in a continuous and circumferential pattern from the anus to the rectum. This was graded as Joe Score 1 (mild, with erythema, decreased vascular pattern, mild friability), and when compared to the previous examination, the findings are improved. Biopsies were taken with a cold forceps for histology. Verification of patient identification for the specimen was done. Estimated blood loss was minimal. The terminal ileum appeared normal. The exam was otherwise without abnormality on direct and retroflexion views. Impression: - Mild (Joe Score 1) ulcerative colitis, improved since the last examination. Biopsied. - The examined portion of the ileum was normal. - The examination was otherwise normal on direct and retroflexion views. Recommendation: - Discharge patient to home. - Resume previous diet. - Continue present medications. - Await pathology results. - Repeat colonoscopy in 1 year for surveillance. - Return to GI office. Procedure Code(s): --- Professional --- 23144, Colonoscopy, flexible; with biopsy, single or multiple CPT copyright 2021 [employer]. All rights reserved. The codes documented in this report are preliminary and upon truss puller helper review may be revised to meet current compliance requirements. Raymond Sanchez DO 10/26/2024 11:23:54 AM This report has been signed electronically. Number of Addenda: 0 Note Initiated On: 10/26/2024 10:42 AM
--- NOTE | 2024-10-26 11:24 | OP.CCLET_ITS ---
10/26/2024 Elijah Lowery MD [address] [place] [address] Re : Colonoscopy procedure for [facility] Dear Dr. Lowery This procedure was performed on October. My impressions and recommendations are as follows: Impressions : - Mild (Joe Score 1) ulcerative colitis, improved since the last examination. Biopsied. - The examined portion of the ileum was normal. - The examination was otherwise normal on direct and retroflexion views. Recommendations : - Discharge patient to home. - Resume previous diet. - Continue present medications. - Await pathology results. - Repeat colonoscopy in 1 year for surveillance. - Return to GI office. My findings are described in the full procedure note, which is enclosed. If I can be of further assistance, please feel free to contact me at . Sincerely, Raymond Sanchez, 10/26/2024 11:23:54 AM This report has been signed electronically.
--- NOTE | 2024-10-26 12:29 | PCM.POSTANE2 ---
Anesthesia Postop Eval I Sum Postop Eval Completion status Anesthesia document: Postop Eval 1 completed: Yes Anesthesia Postop Eval I Summary Anesthesia Postop Eval I Summary: Anesthesia Postop Eval I: Assessment Summary Airway patent Yes 10/26/24 11:21 [email or web address] Spontaneous unlabored Yes 10/26/24 11:21 [email or web address] respirations Mental status Awake,Calm 10/26/24 11:21 [email or web address] nausea No 10/26/24 11:21 [email or web address] Vomiting No 10/26/24 11:21 [email or web address] Anesthesia Postop Eval I: Fluid Summary Crystalloid volume administer 500 10/26/24 11:21 [email or web address] (ml) Colloids volume administered ( ml) Blood Product volume administered (ml) Total IV fluid infused 500 10/26/24 11:21 [email or web address] Anesthesia Postop Eval I: Summary Notes Anesthesia Complication No 10/26/24 11:21 [email or web address] Anesthesia Complication Comment: Post-operative progress note Anesthesia: Postop Eval II Evaluation Mental status: Awake and Calm Pain Level: 0 nausea: No Vomiting: No Complications Anesthesia Complication: No
== END 2024-10-26 11:58 | disposition home or self-care (01) ==
LOC: EN 08:41
PROVIDERS: PCP Family Medicine; Referring Provider Family Medicine; Visit Provider Internal Medicine Gastroenterology
PROC: 0DJD8ZZ Inspection of Lower Intestinal Tract, Via Natural or Artificial Opening Endoscopic (ICD-10-PCS; CPT 45378; principal; 2024-10-26 09:55)
DX: Z12.11 Encounter for screening for malignant neoplasm of colon (principal); K51.90 Ulcerative colitis, unspecified, without complications; D69.6 Thrombocytopenia, unspecified; Z87.891 Personal history of nicotine dependence; E78.00 Pure hypercholesterolemia, unspecified; Z79.899 Other long term (current) drug therapy; Z79.82 Long term (current) use of aspirin
CPT/HCPCS: 45380; 88305; J2405

== ENCOUNTER → 2024-11-23 | Outpatient (CLI) | payer MEDICARE, SELFPAY ==
[2024-11-23 12:35] LABS: ALB/GLOB Ratio 1.3 RATIO (0.9-2.4); AST(SGOT) 27 U/L (<=37); Alanine Aminotransfer ALT/SGPT 17 U/L (<=46); Albumin, Serum 4.1 g/dL (3.4-4.8); Alkaline Phosphatase 61 U/L (40-129); Anion Gap 9 (5-15); BUN 25 mg/dL (4-19); BUN/Creat Ratio 23.2 RATIO (10-20); Calcium,Total 9.3 mg/dL (7.6-11.0); Carbon Dioxide 26.4 mmol/L (21.0-32.0); Chloride 105 mmol/L (98-108); Cholesterol 137 mg/dL (<=200); Creatinine, Serum 1.09 mg/dL (0.70-1.20); EST Glomerular Filtration Rate 69 (>60); Glucose 95 mg/dL (70-99); High Density Lipoprotein 69 mg/dL; Low Density Lipoprotein Calc. 59 mg/dL; Potassium 4.3 mmol/L (3.3-5.1); Protein, Total 7.1 g/dL (5.9-8.4); Sodium Level 141 mmol/L (133-145); Total Bilirubin 1.33 mg/dL (0.00-1.30); Triglycerides 45 mg/dL; Very Low Density Lipoprotein 9 mg/dL (5-40); cholesterol:hdl ratio screen 1.98
== END | disposition home or self-care (01) ==
LOC: MFPLAB 09:43
PROVIDERS: PCP Family Medicine; Referring Provider Family Medicine; Visit Provider Family Medicine
DX: E78.5 Hyperlipidemia, unspecified (principal); N28.9 Disorder of kidney and ureter, unspecified
CPT/HCPCS: 36415; 80053; 80061

== ENCOUNTER 2024-12-14 08:21 | Outpatient (CLI) | payer MEDICARE, SELFPAY ==
[2024-12-14 08:38] VITALS: BP 150/82; PULSE 55; RESP 16; TEMP 35.8; O2SAT 97; BMI 21.5
[2024-12-14] MEDS: NORMAL SALINE 0.9% IV (09:05)
[2024-12-14] MEDS: 0.9% NaCl Peripheral Flush Adult IV (09:05)
[2024-12-14] MEDS: INFLIXIMAB DYYB IV (09:05)
[2024-12-14] MEDS: 0.9% NaCl IVPB Med Flush (100mL) 15 ML IV (09:05)
[2024-12-14 11:43] VITALS: BP 144/76; PULSE 46; RESP 16; TEMP 35.9; O2SAT 97
== END 2024-12-14 23:59 | disposition home or self-care (01) ==
LOC: MEDOUTP 08:21
PROVIDERS: PCP Family Medicine; Referring Provider Nurse Practitioner Acute Care; Visit Provider Nurse Practitioner Acute Care
DX: K51.90 Ulcerative colitis, unspecified, without complications (principal)
CPT/HCPCS: 96413; 96415; A4216; Q5103

== ENCOUNTER → 2025-01-16 | Outpatient (CLI) | payer MEDICARE, SELFPAY ==
[2025-01-16 10:20] LABS: Hematocrit 49.5 % (40-54); Hemoglobin 17.7 g/dL (13.0-16.5); Immature Granulocytes Count 0.030 X10^3/uL (0.0-0.0); Mean Corp Hgb Conc 35.8 g/dL (32-36); Mean Corpuscular Volume 97.1 fL (80-94); Mean Platelet Vol. 10.0 fl (6.2-12.0); NRBC Flagged by Analyzer 0 % (0-5); Platelet Count 114 K/mm3 (150-450); RBC Distribution Width CV 12.5 % (11.6-14.6); RBC Distribution Width SD 45.0 fl (35.1-43.9); Red Blood Count 5.10 M/mm3 (4.6-6.2); White Blood Count 9.8 K/mm3 (4.4-11.0)
[2025-01-16 11:35] LABS: AST(SGOT) 25 U/L (<=37); Alanine Aminotransfer ALT/SGPT 16 U/L (<=46); Albumin, Serum 4.1 g/dL (3.4-4.8); Alkaline Phosphatase 62 U/L (40-129); Anion Gap 10 (5-15); BUN 24 mg/dL (4-19); BUN/Creat Ratio 21.4 RATIO (10-20); Calcium,Total 9.2 mg/dL (7.6-11.0); Carbon Dioxide 24.7 mmol/L (21.0-32.0); Chloride 103 mmol/L (98-108); Globulin 3.0 g/dL (2.2-4.2); Glucose 98 mg/dL (70-99); Potassium 4.3 mmol/L (3.3-5.1)
[2025-01-16 11:36] LABS: CRP < 3.00 mg/L (0.0-3.0)
== END | disposition home or self-care (01) ==
LOC: LAB 09:46
PROVIDERS: PCP Family Medicine; Referring Provider Nurse Practitioner Acute Care; Visit Provider Nurse Practitioner Acute Care
DX: K51.90 Ulcerative colitis, unspecified, without complications (principal); K52.832 Lymphocytic colitis; D69.6 Thrombocytopenia, unspecified
CPT/HCPCS: 36415; 80053; 85025; 86140

== ENCOUNTER 2025-02-09 08:17 | Outpatient (CLI) | payer MEDICARE, SELFPAY ==
[2025-02-09 08:51] VITALS: BP 130/71; PULSE 55; RESP 16; TEMP 36.1; O2SAT 96; BMI 21.8
[2025-02-09] MEDS: 0.9% NaCl Peripheral Flush Adult IV (08:52)
[2025-02-09] MEDS: INFLIXIMAB DYYB IV (09:02)
[2025-02-09] MEDS: 0.9% NaCl IVPB Med Flush (250 mL) 15 ML IV (09:02)
[2025-02-09] MEDS: NORMAL SALINE 0.9% IV (09:02)
[2025-02-09 11:46] VITALS: BP 122/69; PULSE 48; RESP 16; TEMP 36.2; O2SAT 96
== END 2025-02-09 23:59 | disposition home or self-care (01) ==
LOC: MEDOUTP 08:17
PROVIDERS: PCP Family Medicine; Referring Provider Nurse Practitioner Acute Care; Visit Provider Nurse Practitioner Acute Care
DX: K51.90 Ulcerative colitis, unspecified, without complications (principal)
CPT/HCPCS: 96413; 96415; A4216; Q5103

== ENCOUNTER → 2025-03-08 | Outpatient (CLI) | payer MEDICARE, SELFPAY ==
[2025-03-08 10:57] LABS: Ferritin 216 ng/mL (37-417); Iron 135 ug/dL (65-175); Iron Binding Capacity,Unsat 90 ug/dL (228-428)
[2025-03-08 11:08] LABS: Iron Binding Capacity,Total 225 ug/dL (250-450)
== END | disposition home or self-care (01) ==
LOC: LAB 08:45
PROVIDERS: PCP Family Medicine; Referring Provider Nurse Practitioner Acute Care; Visit Provider Nurse Practitioner Acute Care
DX: D69.6 Thrombocytopenia, unspecified (principal); D58.2 Other hemoglobinopathies
CPT/HCPCS: 36415; 82728; 83540; 83550

== ENCOUNTER 2025-04-06 08:12 | Outpatient (CLI) | payer MEDICARE, SELFPAY ==
[2025-04-06 08:18] VITALS: BMI 22.1
[2025-04-06 08:22] VITALS: BP 137/65; PULSE 55; RESP 16; TEMP 35.8; O2SAT 100; BMI 22.1
[2025-04-06] MEDS: 0.9% NaCl Peripheral Flush Adult IV (08:24)
[2025-04-06] MEDS: 0.9% NaCl IVPB Med Flush (100mL) 15 ML IV (08:45)
[2025-04-06] MEDS: NORMAL SALINE 0.9% IV (09:07)
[2025-04-06] MEDS: INFLIXIMAB DYYB IV (09:07)
== END 2025-04-06 23:59 | disposition home or self-care (01) ==
LOC: MEDOUTP 08:12
PROVIDERS: PCP Family Medicine; Referring Provider Nurse Practitioner Acute Care; Visit Provider Nurse Practitioner Acute Care
DX: K51.90 Ulcerative colitis, unspecified, without complications (principal)
CPT/HCPCS: 96413; 96415; A4216; Q5103

== ENCOUNTER 2025-06-01 08:13 | Outpatient (CLI) | payer MEDICARE, SELFPAY ==
[2025-06-01 08:35] VITALS: BP 134/80; PULSE 59; RESP 16; TEMP 36.1; O2SAT 99; BMI 22.1
[2025-06-01] MEDS: 0.9% NaCl Peripheral Flush Adult IV (08:49)
[2025-06-01] MEDS: 0.9% NaCl IVPB Med Flush (100mL) 15 ML IV (08:49)
[2025-06-01] MEDS: INFLIXIMAB DYYB IV (09:26)
[2025-06-01] MEDS: NORMAL SALINE 0.9% IV (09:26)
[2025-06-01 11:57] VITALS: BP 131/84; PULSE 51; RESP 16
== END 2025-06-01 23:59 | disposition home or self-care (01) ==
LOC: MEDOUTP 08:14
PROVIDERS: PCP Family Medicine; Referring Provider Nurse Practitioner Acute Care; Visit Provider Nurse Practitioner Acute Care
DX: K51.90 Ulcerative colitis, unspecified, without complications (principal)
CPT/HCPCS: 96413; 96415; A4216; Q5103